=== PATIENT | female | born 1985 ===

== ENCOUNTER 2022-12-29 00:24 | Emergency (ER) | payer OTHER, SELFPAY ==
--- NOTE | ~2022-12-29 | CT_ITS ---
EXAMINATION: CT ABDOMEN AND PELVIS WITHOUT CONTRAST CLINICAL INFORMATION: Right upper quadrant pain COMPARISON: None available. TECHNIQUE: Multidetector volumetric imaging was performed from the superior aspect of the liver through the pubic symphysis. Sagittal and coronal reformatted images were obtained on the technologist's workstation. This CT examination was performed using dose optimization techniques as appropriate, variously including the following: *Automated exposure control *Adjustment of mA and/or kV according to patient size (this includes techniques or standardized protocols for targeted exams where dose is matched to indication/reason for exam; i.e. extremities or head) *Use of iterative reconstruction technique DLP: 868 mGy-cm FINDINGS: LUNG BASES: The visualized lung bases are unremarkable. LIVER, GALLBLADDER, AND BILIARY TREE: The liver is normal in size, shape, and attenuation. No focal hepatic lesion or biliary ductal dilatation is present. The gallbladder is unremarkable with no evidence of radiopaque gallstones, gallbladder wall thickening, or obvious pericholecystic inflammatory changes. PANCREAS: Unremarkable. SPLEEN: Unremarkable. ADRENAL GLANDS: Unremarkable. KIDNEYS AND URETERS: The kidneys are normal in size, shape, and attenuation. No hydronephrosis, hydroureter, or calculi seen. No perinephric stranding. BLADDER: Decompressed with no gross abnormality. GASTROINTESTINAL TRACT: The stomach is unremarkable. Normal caliber small bowel. No obstruction. No colonic wall thickening or acute inflammation. Mild colonic stool burden. Normal appendix. ABDOMINAL WALL: No significant hernia is appreciated. LYMPH NODES: Normal. VASCULAR: Unremarkable. PELVIC VISCERA: The uterus and adnexa are unremarkable. OSSEOUS STRUCTURES: Unremarkable. CT/CT abdomen pelvis wo IV con IMPRESSION: No acute findings in the abdomen or pelvis. No inflammatory changes. Normal appearance of the gallbladder. Fleischner guidelines were followed.
[2022-12-29 00:33] VITALS: BP 125/57; PULSE 84; RESP 18; TEMP 36.4; O2SAT 99; BMI 35.4
[2022-12-29 00:50] LABS: MANUAL DIFF FLAG NO
[2022-12-29 01:02] LABS: Basophils Absolute Auto 0.1 X10*3/uL (0.0-0.2); Basophils Percent Auto 0.4 % (0-2); Eosinophils Absolute Auto 0.6 X10*3/uL (0.0-0.4); Eosinophils Percent Auto 4.5 % (0-4); Hematocrit 44.7 % (37.0-47.0); Imm Gran Abs Auto 0.05 X10*3/uL (0.00-0.03); Imm Gran Pct Auto 0.4 % (0.0-0.4); Lymphocytes Absolute Auto 2.7 X10*3/uL (1.2-4.9); Lymphocytes Percent Auto 20.7 % (20-40); Mean Corpuscular HGB Conc 31.3 g/dl (31.0-35.0); Mean Corpuscular Hemoglobin 28.2 pg (27.0-33.0); Mean Corpuscular Volume 89.9 fL (80.0-98.0); Mean Platelet Volume 9.6 fL (9.4-12.3); Monocytes Absolute Auto 0.7 X10*3/uL (0.1-1.2); Monocytes Percent Auto 5.5 % (2-11); Neutrophils Absolute Auto 8.9 x10*3/uL (2.0-8.3); Neutrophils Percent Auto 68.5 % (45-73); Platelet Count 310 X10*3/uL (160-400); Red Blood Count 4.97 X10*6/uL (4.20-5.50); Red Cell Distribution Width 14.2 % (11.0-16.0)
[2022-12-29 01:17] LABS: Alanine Aminotransferase 13 U/L (0-31); Albumin Level 4.3 g/dL (3.5-5.0); Alkaline Phosphatase 105 U/L (39-117); Anion Gap 16 (12-20); Aspartate Amino Transferase 14 U/L (5-31); Bilirubin Total 0.5 mg/dL (0.0-1.0); Blood Urea Nitrogen 11 mg/dL (9-16); Calcium 9.7 mg/dL (8.4-10.2); Carbon Dioxide 17 mmol/L (22-29); Chloride 111 mmol/L (96-108); Creatinine Clr Calc Pharmacy 120.5; Estimated Glomerular Filt Rate > 60; Glucose Random 93 mg/dL (60-115); Potassium 4.2 mmol/L (3.3-5.1); Sodium 140 mmol/L (135-145); Total Protein 7.4 g/dL (6.5-8.0)
[2022-12-29 02:30] VITALS: BP 111/49; PULSE 76; RESP 16; TEMP 36.5; O2SAT 100
--- NOTE | 2022-12-29 02:30 | MHC.EDTECH ---
this pct assumed care of pt at 0225 ,vitals sign taken ,pt boy friend at bed side .
--- NOTE | 2022-12-29 03:45 | ED.ABDPAIN ---
HPI - Abdominal Pain General Chief Complaint: Nausea/Vomiting/Diarrhea Stated Complaint: Abd pain/vomiting/fever/chills Time Seen by Provider: 12/29/22 03:33 Source: patient and family (, Dario) Mode of arrival: ambulatory Limitations: no limitations History of Present Illness HPI narrative: 37-year-old female who presents emergency department for evaluation of abdominal pain x12 days. She states that the pain came on gradually approximately 6 days prior but has been constant. She points to her right upper quadrant when asked to localize the pain. She describes the pain is stabbing, burning, constant pain which is 10/10. The pain does radiate to her back. She states she has nausea and vomiting mainly at night. She states she throws up 3 to 4 times a day. She has not had any diarrhea and she did have a hard bowel movement yesterday. She has had a subjective fever and chills. She states that she feels short of breath secondary to her pain. This is her 1st episode of this type of pain. The patient is AG 4 P 3 with 1 miscarriage. Her last menstrual period was 3 weeks prior. Related Data Previous Rx's Medication Instructions Recorded morphine 15 mg immediate release 15 mg PO Q4-6H PRN pain #10 tabs 12/29/22 tablet ondansetron 4 mg disintegrating 4 mg PO Q6-8H PRN nausea and 12/29/22 tablet vomiting #14 tabs Allergies Allergy/AdvReac Type Severity Reaction Status Date / Time bee pollen Allergy Anaphylaxis Verified 12/29/22 00:30 mite-Dermatophagoides Allergy Nasal Verified 12/29/22 00:31 farinae, maya congestion [dust mite - [place]] onion Allergy Anaphylaxis Verified 12/29/22 00:30 pollen extracts Allergy Nasal Verified 12/29/22 00:31 congestion seafood Allergy Anaphylaxis Verified 12/29/22 00:30 berries Allergy Anaphylaxis Uncoded 12/29/22 00:30 Review of Systems Review of Systems Yes all other systems are reviewed and are negative [facility] Past Medical History [facility] Narrative: Past medical history: Asthma, lower disc disease, fibromyalgia. Past surgical history none: Social history: She is her is here in the emergency department with her. She smokes 7 cigarettes per day x7 years. She denies alcohol use. She denies drug use. Social History Social History Alcohol intake: never Smoked in Last 30 Days: Yes Use of substances other than those prescribed or required for medical reasons: Yes Substance Use Type: Marijuana Substance Use Frequency: Occasionally Advance Directives: No Advance Directives Information Provided: Yes Patient : No Physical Exam ED Vital Signs: Vital Signs - 24 hr 12/29/22 00:33 12/29/22 02:30 12/29/22 04:00 Temperature 97.6 F 97.7 F 97.7 F Pulse Rate 84 76 80 Respiratory Rate 18 16 16 Blood Pressure 125/57 L 111/49 L 115/45 L Pulse Oximetry 99 100 100 Oxygen Delivery Method Room Air Room Air Room Air 12/29/22 06:00 Temperature 98.0 F Pulse Rate 69 Respiratory Rate 16 Blood Pressure 105/52 L Pulse Oximetry 99 Oxygen Delivery Method Room Air BMI result Body Mass Index 35.4 Const Other: Awake, alert, female patient, she does appear to be in distress secondary to her pain, she answers all questions appropriately. She has an elevated BMI of 35.4 HENMT Head: Yes normal to inspection, Yes normocephalic and Yes atraumatic Ears: external ears normal General nose exam: Normal external nose present Face and sinus: Yes normal facial exam Mouth: Normal oral and palatal mucosa present Throat: Yes posterior oropharynx normal Eyes General: appearance normal, both eyes and all related structures Pupils: Equal, round and reactive pupils present Neck Neck: Yes normal visual inspection, Yes no lymphadenopathy, Yes trachea midline and Yes supple Chest Chest palpation & inspection: normal inspection of the chest and normal palpation of entire chest wall Resp Effort & Inspection: normal respiratory effort and able to speak in complete sentences Auscultation: clear to auscultation bilaterally Cardio Rate: regular rate Rhythm: regular rhythm Heart sounds: S1 normal heart sound present, S2 normal heart sound present and no murmurs GI Other: Patient's abdomen is obese, she has moderate to severe right upper quadrant tenderness with positive Larios sign, she has moderate epigastric tenderness, she has right-sided moderate CVA tenderness. She has normoactive bowel sounds, there is no rebound. General: Yes CVA tenderness on the right (Moderate) Back/Spine/Pelvis Back: CVA tenderness Skin General skin exam: no rashes or lesions noted Neuro Cranial nerves: Yes CN's II-XII intact bilaterally and Yes Equal, round and reactive pupils present Cognition (Neuro): normal cognition Motor exam (neuro): 5/5 motor strength present throughout Extrem General: Yes normal to inspection Psych Appearance: grossly normal Speech and movement: Normal speech and movement present Affect: normal affect Attitude: cooperative Medical Decision Making Medical Decision Making MDM Narrative: 37-year-old female who presents emergency department for evaluation of 12 days of right upper quadrant abdominal pain which radiates to her back associated with subjective fever, chills, nausea and vomiting. Vital signs were normal. Patient does have moderate right upper quadrant tenderness with positive Larios sign and epigastric tenderness. I did order a CBC, CMP, lipase, quantitative beta-hCG, influenza and COVID-19. Patient will be treated with morphine 4 mg IV, Zofran 4 mg IV and lactated Ringer's x1 L. will obtain a CT scan of the abdomen pelvis without IV contrast to evaluate her pain. 0634: My interpretation patient's laboratory evaluation is as follows: WBC elevated 13,000. Bicarb low 17. Quantitative beta-hCG negative. Lipase normal. The CT scan of the abdomen pelvis radiology interpretation revealed no acute findings to explain the patient's right upper quadrant pain. The patient is feeling better after the above treatment however after drinking some Sprite her pain did come back therefore she was ordered to get a 2nd dose of morphine. At this time I do not have a clear etiology for symptoms, the patient most likely has a viral syndrome. Patient was advised to take Tylenol ibuprofen for pain and for pain not relieved by these medications she was prescribed morphine 15 mg every 4 hours as needed. She is also given prescription for Zofran ODT 4 mg every 8 hours. She was given printed and verbal instructions discharged home. Differential Diagnosis Differential diagnosis includes but is not limited to acute cholecystitis, renal colic, ureteral stone, pancreatitis, viral syndrome, gastritis Lab Data 12/29/22 00:46 12/29/22 00:46 Labs: Lab Results 12/29/22 12/29/22 12/29/22 Range/Units 00:46 00:46 04:12 WBC 13.0 H (4.8-10.8) X10*3/uL RBC 4.97 (4.20-5.50) X10*6/uL Hgb 14.0 (12.0-16.0) g/dl Hct 44.7 (37.0-47.0) % MCV 89.9 (80.0-98.0) fL MCH 28.2 (27.0-33.0) pg MCHC 31.3 (31.0-35.0) g/dl RDW 14.2 (11.0-16.0) % Plt Count 310 (160-400) X10*3/uL MPV 9.6 (9.4-12.3) fL Immature Gran % (Auto) 0.4 (0.0-0.4) % Neut % (Auto) 68.5 (45-73) % Lymph % (Auto) 20.7 (20-40) % [place] % (Auto) 5.5 (2-11) % Eos % (Auto) 4.5 H (0-4) % Baso % (Auto) 0.4 (0-2) % Lymph # (Auto) 2.7 (1.2-4.9) X10*3/uL [place] # (Auto) 0.7 (0.1-1.2) X10*3/uL Eos # (Auto) 0.6 H (0.0-0.4) X10*3/uL Baso # (Auto) 0.1 (0.0-0.2) X10*3/uL Abs Immat Gran (auto) 0.05 H (0.00-0.03) X10*3/uL Absolute Neuts (auto) 8.9 H (2.0-8.3) x10*3/uL Absolute Nucleated RBC 0.000 (0.0-0.012) X10*3/uL Nucleated RBC % (auto) 0.0 (0.0-0.2) /100WBC Sodium 140 (135-145) mmol/L Potassium 4.2 (3.3-5.1) mmol/L Chloride 111 H (96-108) mmol/L Carbon Dioxide 17 L (22-29) mmol/L Anion Gap 16 (12-20) BUN 11 (9-16) mg/dL Creatinine 0.84 (0.5-1.4) mg/dL Estim Creat Clear Calc 120.5 Estimated GFR > 60 Random Glucose 93 (60-115) mg/dL Calcium 9.7 (8.4-10.2) mg/dL Total Bilirubin 0.5 (0.0-1.0) mg/dL AST 14 (5-31) U/L ALT 13 (0-31) U/L Alkaline Phosphatase 105 (39-117) U/L Total Protein 7.4 (6.5-8.0) g/dL Albumin 4.3 (3.5-5.0) g/dL Lipase 21 (8-78) U/L Beta HCG, Quant < 2 mIU/mL Urine Color Urine Appearance Urine pH (5.0-9.0) Ur Specific [place] (1.005-1.025) Urine Protein (Neg-Trace) mg/dL Urine Glucose (UA) (Negative) mg/dL Urine Ketones (Negative) mg/dL Urine Blood (Negative) Urine Nitrite (Negative) Ur Leukocyte Esterase (Negative) Urine RBC (0-2) /HPF Urine WBC (0-5) /HPF Ur Squamous Epith Cells (0-2) /HPF Urine Bacteria (None Seen) Hyaline Casts (0-2) /LPF COVID-19 (RUMA) (Negative) COVID-19 Clin Com Influenza Type A (CARYN) Negative (Negative) Influenza Type B (CARYN) Negative (Negative) Influenza A & B Note See Note 12/29/22 12/29/22 Range/Units 04:12 04:12 WBC (4.8-10.8) X10*3/uL RBC (4.20-5.50) X10*6/uL Hgb (12.0-16.0) g/dl Hct (37.0-47.0) % MCV (80.0-98.0) fL MCH (27.0-33.0) pg MCHC (31.0-35.0) g/dl RDW (11.0-16.0) % Plt Count (160-400) X10*3/uL MPV (9.4-12.3) fL Immature Gran % (Auto) (0.0-0.4) % Neut % (Auto) (45-73) % Lymph % (Auto) (20-40) % [place] % (Auto) (2-11) % Eos % (Auto) (0-4) % Baso % (Auto) (0-2) % Lymph # (Auto) (1.2-4.9) X10*3/uL [place] # (Auto) (0.1-1.2) X10*3/uL Eos # (Auto) (0.0-0.4) X10*3/uL Baso # (Auto) (0.0-0.2) X10*3/uL Abs Immat Gran (auto) (0.00-0.03) X10*3/uL Absolute Neuts (auto) (2.0-8.3) x10*3/uL Absolute Nucleated RBC (0.0-0.012) X10*3/uL Nucleated RBC % (auto) (0.0-0.2) /100WBC Sodium (135-145) mmol/L Potassium (3.3-5.1) mmol/L Chloride (96-108) mmol/L Carbon Dioxide (22-29) mmol/L Anion Gap (12-20) BUN (9-16) mg/dL Creatinine (0.5-1.4) mg/dL Estim Creat Clear Calc Estimated GFR Random Glucose (60-115) mg/dL Calcium (8.4-10.2) mg/dL Total Bilirubin (0.0-1.0) mg/dL AST (5-31) U/L ALT (0-31) U/L Alkaline Phosphatase (39-117) U/L Total Protein (6.5-8.0) g/dL Albumin (3.5-5.0) g/dL Lipase (8-78) U/L Beta HCG, Quant mIU/mL Urine Color Dark Yellow Urine Appearance Clear Urine pH 5.5 (5.0-9.0) Ur Specific [place] >= 1.030 H (1.005-1.025) Urine Protein Negative (Neg-Trace) mg/dL Urine Glucose (UA) Negative (Negative) mg/dL Urine Ketones Trace (Negative) mg/dL Urine Blood Small (1+) H (Negative) Urine Nitrite Negative (Negative) Ur Leukocyte Esterase Negative (Negative) Urine RBC 11-20 H (0-2) /HPF Urine WBC 0-5 (0-5) /HPF Ur Squamous Epith Cells 3-5 (0-2) /HPF Urine Bacteria None Seen (None Seen) Hyaline Casts 0-2 (0-2) /LPF COVID-19 (RUMA) Negative (Negative) COVID-19 Clin Com See Note Influenza Type A (CARYN) (Negative) Influenza Type B (CARYN) (Negative) Influenza A & B Note Medications Administered Discontinued Medications Generic Name Dose Route Start Last Admin Trade Name Sandipq PRN Reason Stop Dose Admin Lactated Ringer's 1,000 mls @ 999 mls/hr 12/29/22 03:45 12/29/22 06:32 Lr IV 12/29/22 04:45 Infused .Q1H1M KAMLA Infusion Morphine Sulfate 4 mg 12/29/22 03:44 12/29/22 04:37 Morphine Sulfate 4 Mg/Ml Cartridge IVPUSH 12/29/22 03:45 4 mg ONCE STA Administration Protocol Ondansetron HCl 4 mg 12/29/22 03:44 12/29/22 04:38 Ondansetron Hcl 4 Mg/2 Ml Vial IVPUSH 12/29/22 03:45 4 mg ONCE ONE Administration Discharge Plan Discharge Clinical Impression: Acute dehydration Abdominal pain Qualifiers: Abdominal location: right upper quadrant Qualified Code(s): R10.11 - Right upper quadrant pain Vomiting Qualifiers: Vomiting type: unspecified Nausea presence: with nausea Qualified Code(s): R11.2 - Nausea with vomiting, unspecified Patient Disposition: Home, Self-Care Instructions: Abdominal Pain (ED) Additional Instructions: Your blood work was unremarkable. The CT scan of your abdomen pelvis without IV contrast did not reveal a clear cause for your pain. At this time, I suspect that you have a viral infection. Take ibuprofen 200 mg pills, 2 pills every 6 hours as needed for pain. Take Tylenol (acetaminophen) 2 pills every 6 hours as needed for pain. For pain not relieved by ibuprofen or Tylenol take morphine 15 mg pills, 1 pill every 4 hours as needed for pain. This medication will make you sleepy, do not drive or work while taking this medication. Morphine is a narcotic medication and can be addicting. If you are concerned about addiction you can ask the pharmacist for less pills or do not get this prescription filled. Take Zofran ODT 4 mg pills, 1 pill dissolved in your mouth every 8 hours as needed for nausea and vomiting. Follow-up with your doctor in 2 days. Please return to the emergency department if your symptoms get worse or if you develop any symptoms that are concerning to you. Prescriptions: New morphine 15 mg tablet 15 mg PO Q4-6H PRN (Reason: pain) Qty: 10 0RF Rx Instructions: The patient may ask for partial fill; Partial Fill upon patient request. ondansetron 4 mg tablet,disintegrating 4 mg PO Q6-8H PRN (Reason: nausea and vomiting) Qty: 14 0RF
[2022-12-29 03:49] LABS: Lipase 21 U/L (8-78)
[2022-12-29 04:00] VITALS: BP 115/45; PULSE 80; RESP 16; TEMP 36.5; O2SAT 100
--- NOTE | 2022-12-29 04:00 | MHC.EDTECH ---
0400 rounding done ,vitals sign taken ,flu ,covid and urine sample collected and sent to lab .
[2022-12-29 04:02] LABS: HCG Quantitative < 2 mIU/mL
[2022-12-29 04:31] LABS: Appearance Urine Clear; Color Urine Dark Yellow; Glucose Urine UA Negative (Negative); Leukocyte Esterase Urine Negative (Negative); Nitrite Urine Negative (Negative); PH 5.5 (5.0-9.0); Specific Gravity - Urine >= 1.030 (1.005-1.025); UMIC TRIGGER UACC YES; Urine Blood Small (1+) (Negative); Urine Ketones Trace mg/dL (Negative); Urine Protein Negative (Neg-Trace)
[2022-12-29 04:37] LABS: Bacteria Urine None Seen (None Seen); Hyaline Casts Urine 0-2 /LPF (0-2); WBC Urine 0-5 /HPF (0-5)
[2022-12-29] MEDS: Morphine Sulfate 4 MG/ML CARTRIDGE IVPUSH ×2 (04:37→06:49)
[2022-12-29] MEDS: ondansetron HCL 4 MG/2 ML VIAL IVPUSH (04:38)
[2022-12-29] MEDS: Lactated Ringers 1,000 ML 999 ML IV (04:44)
[2022-12-29 04:46] LABS: IDNOW Serial# BCCEAD1C; Influenza A Negative (Negative); Influenza B2 Negative (Negative)
[2022-12-29 04:47] LABS: COVID-19 Test Negative (Negative); IDNOW Serial# 08D9AD1C
--- OUTSIDE RECORDS SUMMARY | 2022-12-29 04:48 | XMS_ITS | Continuity of Care Document ---
:1985 Author Organization [facility] Address [address] [place] [id number]- Care Team Providers Name Role Phone Fuad Moreira MD Primary Care Physician [place] [facility] [place] 04/22/[address] [id number] Allergies, Adverse Reactions, Alerts Substance Reaction Severity Status shellfish facial swelling Active Seafood facial swelling Active Medications Advair Diskus 250 mcg-50 mcg inhalation powder 1 puffs, Inhalation, 2 times a day, rinse mouth and throat after use, # 60 each, 3 Refills, Maintenance, 11/16/13 14:29:58, Powder, 1 puffs Inhalation 2 times a day,Instr:rinse mouth and throat after use Start Date: 11/16/13 Status: OrderedAdvair Diskus 500 mcg-50 mcg inhalation powder 1 puffs, Inhalation, 2 times a day, rinse mouth and throat after use, # 60 each, 4 Refills, Maintenance, 05/16/14 11:36:45, Powder, 1 puffs Inhalation 2 times a day,Instr:rinse mouth and throat after use Start Date: 05/16/14 Status: Orderedalbuterol 0.083% inhalation solution 3 mL = 2.5 mg, Inhalation, Every 6 hours, # 120 each, 0 Refills, Maintenance, Solution Start Date: 11/02/12 Status: Orderedalbuterol CFC free 90 mcg/inh inhalation aerosol 2 puffs, Inhalation, 4 times a day, PRN for wheezing, # 25 Gm, 0 Refills, Maintenance, Aerosol Start Date: 10/24/13 Status: OrderedClaritin 10 mg oral tablet 1 tablet = 10 mg, By Mouth, Daily, # 30 tablet, 2 Refills, Maintenance, 05/16/14 11:36:00, Tablet, 1tablet By Mouth Daily Start Date: 05/16/14 Status: OrderedDiflucan 150 mg oral tablet 1 tablet = 150 mg, By Mouth, Once, # 1 tablet, 0 Refills, Soft Stop, 12/02/18 9:41:18 EST, Tablet Start Date: 12/02/18 Status: Orderedgabapentin 100 mg oral capsule 3 capsule = 300 mg, By Mouth, 3 times a day, start with 1 capsule TID x 3 days the 2 capsules TID x 3 days then 3 capsules TID, # 270 capsule, 1 Refills, Maintenance, 09/20/14 10:36:10, 3 capsule By Mouth 3 times a day,Instr:start with 1 capsule TID x... Start Date: 09/20/14 Status: OrderedIbuprofen 400, mg, By Mouth, 4 times a day, Scheduled / PRN, 20, 0, 0, 08/14/07 16:47:48, as needed for headache, fever, or sore throat, Print ANYA Number, ADS OPPTHS, 65 Start Date: 08/14/07 Status: Orderedloratadine 10 mg oral tablet 1 tablet = 10 mg, By Mouth, Daily, # 30 tablet, 0 Refills, Maintenance, Tablet Start Date: 11/02/12 Status: OrderedPercocet-10/325 oral tablet 2 tablet, By Mouth, Every 6 hours, PRN Pain, # 24 tablet, 0 Refills, Maintenance, Tablet Start Date: 10/24/13 Status: OrderedSingulair 10 mg oral tablet 1 tablet = 10 mg, By Mouth, Daily in PM, # 30 tablet, 6 Refills, Maintenance, 05/16/14 11:35:00, 1 tablet By Mouth Daily in PM Start Date: 05/16/14 Status: Orderedtramadol 50 mg oral tablet 1 tablet = 50 mg, By Mouth, Daily at bedtime, 0 Refills, Maintenance Start Date: 11/02/12 Status: Orderedtrazodone 50 mg oral tablet 0.5 tablet = 25 mg, By Mouth, Daily at bedtime, # 15 tablet, 0 Refills, Maintenance, Tablet Start Date: 11/02/12 Status: Ordered Problem List Condition Effective Dates Status Health Status Informant Arthritis(Confirmed) Active Asthma(Confirmed) Active Fibromyalgia(Confirmed) Active Slipped disc(Confirmed) Active Social History Social History Type Response Smoking Status Never smoker; Tobacco user i n household: No entered on: 11/16/13 Sex
--- OUTSIDE RECORDS SUMMARY | 2022-12-29 04:48 | XMS_ITS | Continuity of Care Document ---
:1985 Author Organization [facility] Address [address] [place] [id number]- Care Team Providers Name Role Phone Lillie AGUILAR, Fuad Vega Primary Care Physician [place] [facility] [place]/23/[place] - 04/22/[address] [id number] Attending Physician: Admtr, Ar8 Allergies, Adverse Reactions, Alerts Substance Reaction Severity [...]
--- OUTSIDE RECORDS SUMMARY | 2022-12-29 04:48 | XMS_ITS | Continuity of Care Document ---
:1985 Author Organization [facility] Address [address] [place] [id number]- Care Team Providers Name Role Phone Lillie AGUILAR, Fuad Vega Primary Care Physician [facility] [place] Date(s): 06/18/20 - 07/21/[address] [address] [facility] Attending Physician: Morena Romo CNM Admitting Physician: Morena Romo CNM Allergies, Adverse Reactions, Alerts Substance Reaction Severity [...] Condition Effective Dates Status Health Status Informant Asthma(Confirmed) Active Social History Social History Type Response Smoking Status Never smoker; Tobacco user i n household: No entered on: 11/16/13 Sex
--- OUTSIDE RECORDS SUMMARY | 2022-12-29 04:48 | XMS_ITS | Continuity of Care Document ---
:1985 Author Organization [facility] Address [address] [place] [id number]- Care Team Providers Name Role Phone Lilile AGUILAR, Fuad Vega Primary Care Physician [place] [facility] [place] 06/04/[place] - 07/04/[address] [id number] Attending Physician: Admtr, Salvatore Allergies, Adverse Reactions, Alerts Substance Reaction Severity [...]
--- OUTSIDE RECORDS SUMMARY | 2022-12-29 04:48 | XMS_ITS ---
:1985 Author Care Team Providers Name Role Phone URBANO DU MD Primary Care Provider [phone] Allergies Code Code System Name Reaction Severity Status Onset NKDA ? Notes: seasonal allergies, cats and pe ts Medications Name Status Start Date Stop Date ? ? Acne Medication 10 % topical gel Active ? Not available KAMILA EXT TO FACE BID albuterol sulfate 2.5 mg/3 mL (0.083 %) solution for nebulizatio n Active ? Not available INHALE 3ML VIA NEBULIZER EVERY 6 HOURS NEEDED FOR WHEEZING ammonium lactate 12 % topical cream Active ? Not available APPLY TO BODY TWICE DAILY DIRECTED amoxicillin 500 mg capsule Completed ? 08/28 TAKE 1 CAPSULE BY MOUTH THREE TIMES DAILY FOR 7 DAYS azelaic acid 15 % topical gel Active ? No t available APPLY TOPICALLY TO FACE EVERY NIGHT AT BEDTIME azithromycin 250 mg tablet Completed ? 08/28 benzonatate 100 mg capsule Completed ? 08/28 TAKE 1 CAPSULE BY MOUTH TWICE DAILY NEEDED FOR COUGH betamethasone dipropionate 0.05 % lotion Active ? Not available BinaxNOW COVID-19 Ag Self Test kit Completed ? 08/28/2022 FOLLOW PACKAGE DIRECTIONS Breo Ellipta 100 mcg-25 mcg/dose powder for inhalation Completed ? 08/28/2022 INHALE 1 PUFF INTO THE LUNGS D cholecalciferol (vitamin D3) 1,250 mcg (50,000 unit) capsule Com pleted ? 08/28/2022 TK 1 C PO ONCE A WEEK clindamycin 1 % topical gel Active ? Not available APPLY TOPICALLY TO FACE TWICE DAILY Cough Syrup DM 10 mg-100 mg/5 mL Completed ? 11/13/2019 TK 5MLS PO TID PRF COUGH cyclobenzaprine 10 mg tablet Active ? Not available TAKE 1 TABLET BY MOUTH THREE TIMES DAILY NEEDED FOR MUSCLE S PASMS escitalopram 10 mg tablet Completed ? 2021 TAKE 1 AND 1/2 TABLETS BY MOUTH EVERY MORNING escitalopram 20 mg tablet Active ? Not av ailable TAKE 1 TABLET BY MOUTH EVERY MORNING Flovent HFA 110 mcg/actuation aerosol inhaler Active ? Not available INHALE 1 PUFF PO BID fluconazole 150 mg tablet Completed ? 2020 TK 1 T PO 1 TIME FOR 1 DOSE fluocinonide 0.05 % topical cream Active ? Not available fluoxetine 10 mg capsule Active ? Not cindy ilable TAKE 1 CAPSULE BY MOUTH DAILY fluticasone propionate 50 mcg/actuation nasal spray,suspension A ctive ? Not available INSTILL 1 SPRAY INTO EACH NOSTRILS ONCE DAILY hydrocortisone 2.5 % topical ointment Active ? Not available KAMILA AA BID hydroxyzine pamoate 25 mg capsule Completed ? 08/28/2022 TAKE 1 TO 2 CAPSULES BY MOUTH AT BEDTIME NEEDED FOR SLEEP ibuprofen 600 mg tablet Active ? Not avai lable TAKE 1 TABLET BY MOUTH THREE TIMES DAILY FOR UP TO 10 DAYS NEEDED FOR PAIN ibuprofen 800 mg tablet Completed ? 08/28/20 ketoconazole 2 % shampoo Active ? Not cindy ilable APPLY TOPICALLY TO THE SCALP 2 TIMES EV MELO WEEK. LEAVE ON 5 MINUTES THEN WASH OFF loratadine 10 mg tablet Active ? Not avai lable TAKE 1 TABLET BY MOUTH EVERY DAY NEEDED FOR ALLERGIES methocarbamol 750 mg tablet Completed ? 04/2021 TAKE 1 TABLET BY MOUTH THREE TIMES DAILY methylprednisolone 4 mg tablets in a dose pack Completed ? 03/17/2021 FOLLOW PACKAGE DIRECTIONS metronidazole 0.75 % topical cream Completed ? 08/28/2022 APPLY TOPICALLY TO FACE EVERY MORNING metronidazole 500 mg tablet Completed ? 01/09 TAKE 1 TABLET BY MOUTH EVERY 12 HOURS FOR 7 DAYS montelukast 10 mg tablet Active ? Not cindy ilable TAKE 1 TABLET BY MOUTH EVERY NIGHT AT BEDTIME mgejcgrj-sdcorcriz-lbwluelhd 3.5 mg-10,000 unit/mL-1 % ear d rops,susp Completed ? 08/28/2022 INSTILL 4 DROPS IN LEFT EAR EVERY 6 HOURS nicotine 21 mg/24 hr daily transdermal patch Completed ? 08/28/[address]22 PLACE 1 PATCH ONTO THE SKIN ONCE DAILY omeprazole 20 mg capsule,delayed release Completed ? 08/28/2022 TK 1 C PO D pantoprazole 40 mg tablet,delayed release Active ? Not available TAKE 1 TABLET BY MOUTH EVERY MORNING BEFORE BREAKFAST Paxlovid 300 mg (150 mg x 2)-100 mg tablets in a dose pack (EUA) Completed ? 08/28/2022 TAKE 3 TABLETS BY MOUTH EVERY MORNING AND EVENING FOR 5 DAYS prazosin 1 mg capsule Completed ? 08/28/2022 TAKE 1 CAPSULE BY MOUTH AT BEDTIME prazosin 2 mg capsule Active ? Not availa ble TAKE 1 CAPSULE BY MOUTH AT BEDTIME prednisone 20 mg tablet Completed ? 08/28/20 22 TAKE 2 TABLETS BY MOUTH EVERY DAY FOR 5 DAYS pregabalin 100 mg capsule Active ? Not av ailable TAKE 1 CAPSULE BY MOUTH TWICE DAILY pregabalin 50 mg capsule Completed ? 022 TAKE 1 CAPSULE BY MOUTH THREE TIMES DAILY ProAir HFA 90 mcg/actuation aerosol inhaler Active ? Not available INHALE 2 PUFFS BY MOUTH EVERY 6 HOURS A S NEEDED FOR SHORTNESS OF BREATH OR WHEEZING sertraline 25 mg tablet Active ? Not avai lable TK 1 T PO QD sumatriptan 50 mg tablet Active ? Not cindy ilable TAKE 1 TABLET BY MOUTH EVERY DAY NEEDED FOR MIGRAINE Symbicort 160 mcg-4.5 mcg/actuation HFA aerosol inhaler Complete d ? 08/28/2022 INHALE 2 PUFFS INTO THE LUNGS TWICE DAILY trazodone 100 mg tablet Active ? Not avai lable TAKE 1 TO 2 TABLETS BY MOUTH AT BEDTIME NEEDED FOR SLEEP trazodone 50 mg tablet Completed ? 2 TAKE UP TO 2 TABLETS BY MOUTH AT BEDTIME NEEDED FOR SLEEP triamcinolone acetonide 0.025 % topical cream Active ? Not available varenicline 1 mg tablet Completed ? 08/28/20 22 TAKE 1 TABLET BY MOUTH TWICE DAILY Problems Name Status Onset Date Source ? Lumbosacral Spondylosis without Myelopathy Active ? ? Degeneration of Lumbar Intervertebral Disc Active ? ? Lumbosacral Radiculopathy Active ? ? Procedures Date Name Performed by ? ? Tubal Ligation Information not avai lable 11/13/2019 MRI, Lumbar Spine, W/o Contrast [facility] [address] [place] [address] ([address]) 03/17/2021 MRI, Lumbar Spine, W/o Contrast [facility] [address] [place] [address] (Work Place) Notes: PPTL Results Lab Results None recorded. Past Encounters Encounter Date Diagnosis Provider 08/28/2022 Degeneration of Lumbar Intervertebral Th bhumikau MD [place]: [address]; Lumbosacral Radiculopathy; [address], [place]umbos[place] [address], Ph. Myelopathy 01/26/2022 Degeneration of Lumbar Intervertebral Th bhumikau MD [place]: [address]; Lumbosacral Radiculopathy; [address], [place]umbosacral [place] [address], Ph. Myelopathy 08/11/2021 Degeneration of Lumbar Intervertebral Th bhumikau MD [place]: [address]; Lumbosacral Radiculopathy; [address], [place]umbosacral [place] [address], Ph. Myelopathy 07/03/2021 Degeneration of Lumbar Intervertebral Th bhumikau MD [place]: [address]; Lumbosacral Radiculopathy; [address], [place]umbosacral [place] [address], Ph. Myelopathy Social History Tobacco Smoking Status Current Every Day Smoker Notes: kota pretty per day Vaccine List Notes: covid vaccine - 2 doses pfizer Plan of Care Reminders Provider Appointments None recorded. ? ? Lab None recorded. ? ? Referral None recorded. ? ? Procedures None recorded. ? ? Surgeries None recorded. ? ? Imaging None recorded. ? ? Vitals 08/28/2022 10:00AM RETURN Height Weight BMI Blood Pressure 5 ft 10 in 250 lbs 35.9 kg/m2 126/56 mm[Hg] 08/11/2021 09:30AM RETURN Height Weight BMI 5 ft 10 in 221 lbs 31.7 kg/m2 07/03/2021 11:30AM RETURN Blood Pressure 120/79 mm[Hg] 05/07/2021 10:00AM PROCEDURE Blood Pressure 153/79 mm[Hg] 04/10/2021 09:00AM RETURN Blood Pressure 109/61 mm[Hg] 03/17/2021 09:00AM RETURN Blood Pressure 125/58 mm[Hg] 11/13/2019 09:30AM NEW PATIENT VISIT Height Weight BMI Blood Pressure 5 ft 10 in 221 lbs 31.7 kg/m2 115/59 mm[Hg]
--- OUTSIDE RECORDS SUMMARY | 2022-12-29 04:48 | XMS_ITS | Continuity of Care Document ---
:1985 Author Organization [facility] Address [address] [place] [id number]- Care Team Providers Name Role Phone Fuad Moreira MD Primary Care Physician Encounter [facility] [place] Date(s): 01/05/22 - 04/22/[address] [id number] Attending Physician: Not on Staff, Attending MD Allergies, Adverse Reactions, Alerts Substance Reaction Severity [...]
--- OUTSIDE RECORDS SUMMARY | 2022-12-29 04:48 | XMS_ITS | Continuity of Care Document ---
:1985 Author Organization [facility] Address [address] [place] [address]- Care Team Providers Name Role Phone Lillie AGUILAR, Fuad Vega Primary Care Physician [place] [facility] [place] - 07/21/[address] [address] [facility] Attending Physician: Admtr, Ar8 Allergies, Adverse Reactions, [...]
--- OUTSIDE RECORDS SUMMARY | 2022-12-29 04:48 | XMS_ITS | Continuity of Care Document ---
:1985 Author Organization [facility] Address [address] [place] [address]- Care Team Providers Name Role Phone Trae AGUILAR, Paolo Rudd Primary Care Physician [place] [facility] [place](s): 06/12/22 - 07/12/[address] [address] Attending Physician: Admtr, Ar8 Allergies, Adverse [...] By Mouth Daily Start Date: 05/16/14 Status: Orderedgabapentin 100 mg oral capsule 3 [...] Daily in PM Start Date: 05/16/14 Status: Orderedtrazodone 50 mg oral tablet 0.5 tablet = 25 mg, By Mouth, Daily at bedtime, # 15 tablet, 0 Refills, Maintenance, Tablet Start Date: 11/02/12 Status: Ordered Problem List Condition Confirmation Course Effective Dates Status Health Stat us Informant Arthritis Confirmed Active Asthma Confirmed Active Fibromyalgia Confirmed Active Obese class II Confirmed Active Slipped disc Confirmed Active Social History Social History Type Response Smoking Status 5-9 cigarettes (between 1/4 to 1/2 pack)/day in last 30 days entered on: 06/12/22 Sex Patient Care team information PersonnelName: Trae AGUILAR, Paolo Rudd Address: Address: [address] [place] [address] [place] [address]- [place]
--- OUTSIDE RECORDS SUMMARY | 2022-12-29 04:48 | XMS_ITS | Continuity of Care Document ---
:1985 Author Organization [facility] Address [address] [place] [address]- Care Team Providers Name Role Phone Lillie AGUILAR, Fuad Vega Primary Care Physician [place] [facility] [place](s[place] 06/05/21 - 07/05/[address] [address]- Allergies, Adverse Reactions, Alerts Substance Reaction Severity [...]
--- OUTSIDE RECORDS SUMMARY | 2022-12-29 04:48 | XMS_ITS | Continuity of Care Document ---
:1985 Author Organization [facility] Address [address] [place] [address]- Care Team Providers Name Role Phone Fuad Moreira MD Primary Care Physician Encounter [facility] [place] Date(s): 06/05/21 - 08/31/[address] [address] Attending Physician: Blanquita Rodas CNM Admitting Physician: Blanquita Rodas CNM Referring Physician: Blanquita Rodas CNM Allergies, Adverse Reactions, Alerts Substance Reaction [...]
[2022-12-29 06:00] VITALS: BP 105/52; PULSE 69; RESP 16; TEMP 36.7; O2SAT 99
[2022-12-29 06:49] VITALS: RESP 18
== END 2022-12-29 07:01 | disposition home or self-care (01) ==
PROVIDERS: Emergency Provider Emergency Medicine Emergency Medical Services; PCP Internal Medicine
DX: E86.0 Dehydration (principal); R10.9 Unspecified abdominal pain; R50.9 Fever, unspecified; Z20.822 Contact with and (suspected) exposure to COVID-19; Z20.828 Contact with and (suspected) exposure to other viral communicable diseases; Z79.899 Other long term (current) drug therapy
CPT/HCPCS: 36415; 74176; 80053; 81001; 83690; 84702; 85025; 87502; 87635; 96361; 96374; 96375; 96376; 99284; J2270; J2405

== ENCOUNTER 2023-01-02 16:13 | Inpatient (IN) | payer OTHER, SELFPAY ==
--- NOTE | ~2023-01-02 | MR_ITS ---
EXAMINATION: MR ABDOMEN WITHOUT CONTRAST CLINICAL INFORMATION: Right upper quadrant pain. Elevated transaminases. COMPARISON: Ultrasound and CT imaging exams of the abdomen from 01/02/2023. TECHNIQUE: MR imaging of the abdomen performed using standard sequences on a high-field magnet without intravenous contrast. The examination includes heavily T2-weighted MRCP sequences. FINDINGS: LUNG BASES: Normal. No pulmonary consolidation or pleural effusion. LIVER: Mild hepatomegaly. Liver has normal contour. No focal lesion or intrahepatic ductal dilatation. The parenchyma exhibits mild decreased signal intensity on [id number] compared to in-phase T1-weighted images which suggests presence of mild steatosis. GALLBLADDER AND BILIARY TREE: Gallbladder is physiologically distended and has normal wall thickness. A few small gallstones are noted. No gallbladder wall edema or pericholecystic fluid. Common bile duct measures 0.4 cm diameter. No common duct stricture or choledocholithiasis. PANCREAS: No edema, pancreatic ductal dilatation or mass. SPLEEN: Normal. ADRENAL GLANDS: Normal. KIDNEYS: Kidneys are normal in size. No hydronephrosis or perinephric edema. 1.5 cm simple cyst of the right kidney. No renal imaging follow-up is recommended for simple cyst. BOWEL AND PERITONEUM: Stomach is unremarkable. No dilated loops of bowel. No bowel wall thickening or mesenteric fat stranding. No ascites. VASCULATURE: Unremarkable. LYMPH NODES: No pathologic sized lymph nodes in the abdomen. SKELETAL: Unremarkable. MR/MR MRCP IMPRESSION: * Cholelithiasis without evidence of cholecystitis. * The common bile duct is normal (0.4 cm diameter). No evidence of choledocholithiasis. * Findings are suggestive of mild hepatic steatosis.
--- NOTE | ~2023-01-02 | US_ITS ---
EXAMINATION: US ABDOMEN LIMITED CLINICAL INFORMATION: Elevated LFTs. COMPARISON: CT abdomen pelvis 12/29/2022 TECHNIQUE: Real-time imaging of the right upper quadrant abdominal viscera. FINDINGS: PANCREAS: The pancreas appears unremarkable, without masses or ductal dilatation, with the exception of the tail which is obscured by bowel gas. LIVER: The liver is enlarged measuring at least 19 cm in greatest length with increased echogenicity suggesting hepatic steatosis. On the recent CT scan the liver measured 22 cm in greatest length. The liver contour is normal. No focal hepatic lesion. There is no intrahepatic biliary duct dilatation seen. GALLBLADDER: Gallstones are present along with echogenic bile. Larios's sign is positive. No pericholecystic fluid collections are seen. COMMON BILE DUCT: Normal in caliber measuring 0.5 cm in diameter. RIGHT KIDNEY: A 1.6 cm benign Bosniak class I cyst is present which needs no additional imaging or follow-up. No hydronephrosis. No renal calculi or focal solid parenchymal lesions. The kidney measures 10.1 cm in maximum dimension. FREE FLUID: None. US/US abdomen limited IMPRESSION: 1. Enlarged fatty liver. 2. Cholelithiasis with positive Larios's sign.
--- NOTE | ~2023-01-02 | CT_ITS ---
EXAMINATION: CT ABDOMEN AND PELVIS WITHOUT CONTRAST CLINICAL INFORMATION: Right upper quadrant pain COMPARISON: Ultrasound abdomen 01/02/2023, CT abdomen pelvis 12/29/2022 TECHNIQUE: Multidetector volumetric imaging was performed from the superior aspect of the liver through the pubic symphysis. Sagittal and coronal reformatted images were obtained on the technologist's workstation. This CT examination was performed using dose optimization techniques as appropriate, variously including the following: *Automated exposure control *Adjustment of mA and/or kV according to patient size (this includes techniques or standardized protocols for targeted exams where dose is matched to indication/reason for exam; i.e. extremities or head) *Use of iterative reconstruction technique DLP: 818 mGy-cm FINDINGS: LUNG BASES: The visualized lung bases are unremarkable. LIVER, GALLBLADDER, AND BILIARY TREE: The liver is enlarged measuring 21.6 cm in cephalocaudad dimension. Attenuation is normal. No bile duct dilatation or hepatic masses are seen. The patient's gallstones are isoattenuating with the bile and are not seen on CT. There is no evidence of radiopaque gallstones, gallbladder wall thickening, or obvious pericholecystic inflammatory changes. PANCREAS: Unremarkable. SPLEEN: Spleen is enlarged measuring 13.5 cm in greatest transverse dimension ADRENAL GLANDS: Unremarkable. KIDNEYS AND URETERS: The kidneys are normal in size, shape, and attenuation. No hydronephrosis, hydroureter, or calculi seen. No perinephric stranding. BLADDER: Unremarkable. GASTROINTESTINAL TRACT: The small and large bowel are unremarkable. The appendix is unremarkable. ABDOMINAL WALL: No significant hernia is appreciated. LYMPH NODES: Normal. VASCULAR: Unremarkable. PELVIC VISCERA: Unremarkable. Fallopian tube occlusion devices appear to be present. OSSEOUS STRUCTURES: Unremarkable. Some mild degenerative changes are seen. CT/CT abdomen pelvis wo IV con IMPRESSION: 1. A cause for the patient's abdominal pain has not been found. The patient has gallstones are not seen on CT scan. 2. Incidental note made of hepatosplenomegaly. Fleischner guidelines were followed.
[2023-01-02 16:17] VITALS: BP 140/83; PULSE 68; RESP 18; TEMP 36.3; O2SAT 99; BMI 35.4
[2023-01-02 17:09] LABS: MANUAL DIFF FLAG NO
[2023-01-02 17:14] LABS: Appearance Urine Cloudy; Color Urine Dark Yellow; Glucose Urine UA Negative (Negative); Leukocyte Esterase Urine Moderate (2+) (Negative); Nitrite Urine Positive (Negative); PH 5.5 (5.0-9.0); Specific Gravity - Urine >= 1.030 (1.005-1.025); UMIC TRIGGER UACC YES; Urine Blood Moderate (2+) (Negative); Urine Ketones Trace mg/dL (Negative); Urine Protein Trace mg/dL (Neg-Trace)
[2023-01-02 17:21] LABS: Basophils Percent Auto 0.4 % (0-2); Eosinophils Absolute Auto 0.2 X10*3/uL (0.0-0.4); Eosinophils Percent Auto 3.2 % (0-4); Hematocrit 40.3 % (37.0-47.0); Hemoglobin 13.6 g/dl (12.0-16.0); Imm Gran Abs Auto 0.05 X10*3/uL (0.00-0.03); Imm Gran Pct Auto 0.7 % (0.0-0.4); Lymphocytes Absolute Auto 1.3 X10*3/uL (1.2-4.9); Lymphocytes Percent Auto 19.5 % (20-40); Mean Corpuscular HGB Conc 33.7 g/dl (31.0-35.0); Mean Corpuscular Hemoglobin 29.1 pg (27.0-33.0); Mean Corpuscular Volume 86.1 fL (80.0-98.0); Mean Platelet Volume 9.2 fL (9.4-12.3); Monocytes Absolute Auto 0.5 X10*3/uL (0.1-1.2); Monocytes Percent Auto 6.7 % (2-11); Neutrophils Absolute Auto 4.7 x10*3/uL (2.0-8.3); Neutrophils Percent Auto 69.5 % (45-73); Platelet Count 387 X10*3/uL (160-400); Red Blood Count 4.68 X10*6/uL (4.20-5.50); Red Cell Distribution Width 13.7 % (11.0-16.0); White Blood Count 6.8 X10*3/uL (4.8-10.8)
[2023-01-02 17:32] LABS: Bacteria Urine 4+ (None Seen); RBC Urine >20 /HPF (0-2); UACC Culture Trigger YES; WBC Urine 21-50 /HPF (0-5)
[2023-01-02 17:41] LABS: Alanine Aminotransferase 347 U/L (0-31); Albumin Level 4.2 g/dL (3.5-5.0); Alkaline Phosphatase 179 U/L (39-117); Anion Gap 14 (12-20); Aspartate Amino Transferase 352 U/L (5-31); Bilirubin Total 1.7 mg/dL (0.0-1.0); Blood Urea Nitrogen 9 mg/dL (9-16); Calcium 9.4 mg/dL (8.4-10.2); Carbon Dioxide 21 mmol/L (22-29); Chloride 112 mmol/L (96-108); Creatinine Clr Calc Pharmacy 123.4; Estimated Glomerular Filt Rate > 60; Glucose Random 90 mg/dL (60-115); Potassium 3.9 mmol/L (3.3-5.1); Sodium 143 mmol/L (135-145)
[2023-01-02 19:30] LABS: Lipase 18 U/L (8-78); Magnesium 2.4 mg/dL (1.6-2.6)
[2023-01-02 19:38] LABS: HCG Quantitative < 2 mIU/mL
--- NOTE | 2023-01-02 20:44 | ED_ITS ---
HPI - Abdominal Pain General Chief Complaint: Abdominal Pain Stated Complaint: abd pain Time Seen by Provider: 01/02/23 20:38 Source: patient Mode of arrival: ambulatory Limitations: no limitations History of Present Illness HPI narrative: This is a 37-year-old female history of obesity, asthma, fibromyalgia presenting to the emergency department for evaluation of right upper quadrant pain times a few weeks worsening over the past few days. Patient also reports associated nausea and vomiting. Patient tells me each time she tries to eat she vomits. Patient tells meeting precipitates the pain. Pain is sharp in nature, localized to the right upper quadrant at times radiates to her flank. Reports pain is s evere in nature. Patient still has her gallbladder. Reports subjective fevers and chills however has not taken her temperature. Patient denies chest pain, shortness of breath, headache, vision changes, weakness, dizziness. Related Data Previous Rx's Medication Instructions Recorded morphine 15 mg immediate release 15 mg PO Q4-6H PRN pain #10 tabs 12/29/22 tablet ondansetron 4 mg disintegrating 4 mg PO Q6-8H PRN nausea and 12/29/22 tablet vomiting #14 tabs Allergies Allergy/AdvReac Type Severity Reaction Status Date / Time bee pollen Allergy Anaphylaxis Verified 12/29/22 00:30 mite-Dermatophagoides Allergy Nasal Verified 12/29/22 00:31 farinae, maya congestion [dust mite - [place]] onion Allergy Anaphylaxis Verified 12/29/22 00:30 pollen extracts Allergy Nasal Verified 12/29/22 00:31 congestion seafood Allergy Anaphylaxis Verified 12/29/22 00:30 berries Allergy Anaphylaxis Uncoded 12/29/22 00:30 Review of Systems Review of Systems Constitutional : No Weight loss, No Fever, No Chills, No Fatigue, No Malaise ENT/Mouth : No sore throat, No Rhinorrhea Eyes: No Eye Pain, No Swelling, No Redness Cardiovascular : No Chest Pain, No SOB, No Dyspnea on Exertion, No Orthopnea, No Edema, No Palpitations Respiratory : No Cough, No Sputum, No Wheezing Gastrointestinal : + Nausea, + Vomiting, No Diarrhea, No Constipation, + abdominal Pain, No Hematochezia, No Melena Genitourinary : No Dysuria, No Urinary Frequency, No Hematuria, Musculoskeletal : No joint pain, No Myalgias, No Joint Swelling Skin : No Skin Lesions, No rash Neuro : No Weakness, No Numbness, No Dizziness, No Headache Psych : No Anxiety/Panic, No Depression All other systems reviewed and are negative Yes all other systems are reviewed and are negative [facility] Past Medical History Attestation statement: The following information was validated with the patient. Source: old records reviewed and nursing notes reviewed Social History Social History Alcohol intake: never Substance Use Type: Marijuana Advance Directives: No Advance Directives Information Provided: No Physical Exam ED Vital Signs: Vital Signs - 24 hr 01/02/23 16:17 Temperature 97.4 F Pulse Rate 68 Respiratory Rate 18 Blood Pressure 140/83 H Pulse Oximetry 99 Oxygen Delivery Method Room Air BMI result Body Mass Index 35.4 vss Appearance: Alert.? Oriented X3.? No acute distress.? Head: Normocephalic, atraumatic, no step-offs or deformities Eyes: Pupils equal, round and reactive to light.? ENT: Pharynx normal.? Neck: Normal inspection.? Neck supple.? CVS: Normal heart rate and rhythm.? Pulses normal.? Respiratory: No respiratory distress.? Breath sounds normal.? Abdomen: Soft and + right upper quadrant tenderness with positive Larios sign on exam. Skin: Skin warm and dry.? Normal skin color.? Normal skin turgor.? Extremities: No lower extremity edema.? No calf ttp. 5/5 strength to bilateral upper and lower extremities Back: No midline tenderness, no C-spine tenderness, full range of motion, no CVA tenderness bilaterally Neuro: Oriented X 3.? No motor deficit.? No sensory deficit. CN 2-12 intact Course Reevaluation(s) Reevaluation #1: CBC unremarkable. Chemistry with elevated bilirubin 1.7, AST 352, ALT 347, alk phos 179, these values are deviating significantly from her baseline. I suspect acute cholecystitis with possible obstructing stone. Unlikely cholangitis. Reached out to who will evaluate patient for acute cholecystitis. He also recommends reaching out to GI. Patient is also noted to have a UTI, blood cultures, lactic acid in ceftriaxone ordered. US w/ cholelithiasis w/ + murphys sign Time: 20:51 Reevaluation #2: Dr. Pettit evaluated patient agrees with acute cholecystitis. Would like this case discussed with GI to see if patient will require in the air CP. He will admit to his service. Time: 20:56 Reevaluation #3: Dr. Thomas recommends admitting giving atbx and trending LFTS. If LFTS improve no need for ERCP but if they are unchaged or worse ERCP is warneted. MRCP w/ MRI may be more helpful per GI rather than ERCP. Time: 21:19 Additional Reevaluation(s): [address] Patient refusing contrast. 2204 CT of the abdomen and pelvis unable to identify a cause for patient's abdominal pain. Gallstones not visualized. Incidental note of hepatosplenomegaly. Patient admitted to surgical team. Hemodynamically stable. Medical Decision Making Medical Decision Making [facility] Narrative: 2044 37-year-old female presents with right upper quadrant pain at times radiating to her right flank region with associated nausea and vomiting. Pain precipitated by eating. Going on for few weeks , worsening over the past few days. On exam patient does have right upper quadrant tenderness on exam with positive Larios sign me. Patient appears uncomfortable. No signs of peritonitis or acute abdomen History and physical exam concerning for acute cholecystitis w/ possible cholelithiasis, unlikely cholangitis, acute abdomen, appendicitis, pancreatitis diverticulitis. Plan at this time labs, imaging. Will recheck to surgery Differential Diagnosis Differential Diagnoses: The differential diagnosis associated with the presentation includes History and physical exam concerning for acute cholecystitis w/ possible cholelithiasis, unlikely cholangitis, acute abdomen, appendicitis, pancreatitis diverticulitis. Admission/Observation Consideration of admission/observation: Escalation of care including admission/observation considered Likely Consult Healthcare Provider Management of the patient was discussed with: Instructional Paraprofessional (Dr. Santiago & William ) Lab Data [facility] Lab Attestation statement: I reviewed the patient's lab results. 01/02/23 17:01 01/02/23 17:01 Labs: Lab Results 01/02/23 01/02/23 01/02/23 Range/Units 17:01 17:01 17:05 WBC 6.8 (4.8-10.8) X10*3/uL RBC 4.68 (4.20-5.50) X10*6/uL Hgb 13.6 (12.0-16.0) g/dl Hct 40.3 (37.0-47.0) % MCV 86.1 (80.0-98.0) fL MCH 29.1 (27.0-33.0) pg MCHC 33.7 (31.0-35.0) g/dl RDW 13.7 (11.0-16.0) % Plt Count 387 (160-400) X10*3/uL MPV 9.2 L (9.4-12.3) fL Immature Gran % (Auto) 0.7 H (0.0-0.4) % Neut % (Auto) 69.5 (45-73) % Lymph % (Auto) 19.5 L (20-40) % Fleming % (Auto) 6.7 (2-11) % Eos % (Auto) 3.2 (0-4) % Baso % (Auto) 0.4 (0-2) % Lymph # (Auto) 1.3 (1.2-4.9) X10*3/uL Fleming # (Auto) 0.5 (0.1-1.2) X10*3/uL Eos # (Auto) 0.2 (0.0-0.4) X10*3/uL Baso # (Auto) 0.0 (0.0-0.2) X10*3/uL Abs Immat Gran (auto) 0.05 H (0.00-0.03) X10*3/uL Absolute Neuts (auto) 4.7 (2.0-8.3) x10*3/uL Absolute Nucleated RBC 0.000 (0.0-0.012) X10*3/uL Nucleated RBC % (auto) 0.0 (0.0-0.2) /100WBC Sodium 143 (135-145) mmol/L Potassium 3.9 (3.3-5.1) mmol/L Chloride 112 H (96-108) mmol/L Carbon Dioxide 21 L (22-29) mmol/L Anion Gap 14 (12-20) BUN 9 (9-16) mg/dL Creatinine 0.82 (0.5-1.4) mg/dL Estim Creat Clear Calc 123.4 Estimated GFR > 60 Random Glucose 90 (60-115) mg/dL Lactic Acid (0.5-2.0) mmol/L Calcium 9.4 (8.4-10.2) mg/dL Magnesium 2.4 (1.6-2.6) mg/dL Total Bilirubin 1.7 H (0.0-1.0) mg/dL AST 352 H (5-31) U/L ALT 347 H (0-31) U/L Alkaline Phosphatase 179 H (39-117) U/L Total Protein 7.0 (6.5-8.0) g/dL Albumin 4.2 (3.5-5.0) g/dL Lipase 18 (8-78) U/L Beta HCG, Quant < 2 mIU/mL Urine Color Dark Yellow Urine Appearance Cloudy Urine pH 5.5 (5.0-9.0) Ur Specific [place] >= 1.030 H (1.005-1.025) Urine Protein Trace (Neg-Trace) mg/dL Urine Glucose (UA) Negative (Negative) mg/dL Urine Ketones Trace (Negative) mg/dL Urine Blood Moderate (2+) H (Negative) Urine Nitrite Positive H (Negative) Ur Leukocyte Esterase Moderate (2+) H (Negative) Urine RBC >20 H (0-2) /HPF Urine WBC 21-50 H (0-5) /HPF Ur Squamous Epith Cells 11-20 (0-2) /HPF Urine Bacteria 4+ (None Seen) Hyaline Casts 11-20 (0-2) /LPF 01/02/23 Range/Units 20:57 WBC (4.8-10.8) X10*3/uL RBC (4.20-5.50) X10*6/uL Hgb (12.0-16.0) g/dl Hct (37.0-47.0) % MCV (80.0-98.0) fL MCH (27.0-33.0) pg MCHC (31.0-35.0) g/dl RDW (11.0-16.0) % Plt Count (160-400) X10*3/uL MPV (9.4-12.3) fL Immature Gran % (Auto) (0.0-0.4) % Neut % (Auto) (45-73) % Lymph % (Auto) (20-40) % Fleming % (Auto) (2-11) % Eos % (Auto) (0-4) % Baso % (Auto) (0-2) % Lymph # (Auto) (1.2-4.9) X10*3/uL Fleming # (Auto) (0.1-1.2) X10*3/uL Eos # (Auto) (0.0-0.4) X10*3/uL Baso # (Auto) (0.0-0.2) X10*3/uL Abs Immat Gran (auto) (0.00-0.03) X10*3/uL Absolute Neuts (auto) (2.0-8.3) x10*3/uL Absolute Nucleated RBC (0.0-0.012) X10*3/uL Nucleated RBC % (auto) (0.0-0.2) /100WBC Sodium (135-145) mmol/L Potassium (3.3-5.1) mmol/L Chloride (96-108) mmol/L Carbon Dioxide (22-29) mmol/L Anion Gap (12-20) BUN (9-16) mg/dL Creatinine (0.5-1.4) mg/dL Estim Creat Clear Calc Estimated GFR Random Glucose (60-115) mg/dL Lactic Acid 0.7 (0.5-2.0) mmol/L Calcium (8.4-10.2) mg/dL Magnesium (1.6-2.6) mg/dL Total Bilirubin (0.0-1.0) mg/dL AST (5-31) U/L ALT (0-31) U/L Alkaline Phosphatase (39-117) U/L Total Protein (6.5-8.0) g/dL Albumin (3.5-5.0) g/dL Lipase (8-78) U/L Beta HCG, Quant mIU/mL Urine Color Urine Appearance Urine pH (5.0-9.0) Ur Specific [place] (1.005-1.025) Urine Protein (Neg-Trace) mg/dL Urine Glucose (UA) (Negative) mg/dL Urine Ketones (Negative) mg/dL Urine Blood (Negative) Urine Nitrite (Negative) Ur Leukocyte Esterase (Negative) Urine RBC (0-2) /HPF Urine WBC (0-5) /HPF Ur Squamous Epith Cells (0-2) /HPF Urine Bacteria (None Seen) Hyaline Casts (0-2) /LPF Independent Interpretation I performed an independent interpretation of an: Ultrasound (History and physi betty exam concerning for acute cholecystitis w/ possible cholelithiasis, unlikely cholangitis, acute abdomen, appendicitis, pancreatitis diverticulitis.) and CT Scan (CT/CT abdomen pelvis wo IV con IMPRESSION: 1. A cause for the patient's abdominal pain has not been found. The patient has gallstones are not seen on CT scan. 2. Incidental note made of hepatosplenomegaly. Fleischner guidelines we re followed.) Radiology Impression Discussion of test interpretation with radiology: I have reviewed the radiologist's reading. Core Measures Measure exclusions: not indicated Medications Administered Discontinued Medications Generic Name Dose Route Start Last Admin Trade Name Freq PRN Reason Stop Dose Admin Sodium Chloride 1,000 mls @ 999 mls/hr 01/02/23 20:45 01/02/23 21:09 Ns IV 01/02/23 21:45 999 mls/hr .Q1H1M KAMLA Administration Ceftriaxone Sodium 1 gm/ 50 mls @ 100 mls/hr 01/02/23 20:46 01/02/23 21:11 Sodium Chloride IV 01/02/23 21:15 100 mls/hr ONCE ONE Administration Morphine Sulfate 4 mg 01/02/23 20:45 01/02/23 21:11 Morphine Sulfate 4 Mg/Ml Cartridge IVPUSH 01/02/23 20:46 4 mg ONCE ONE Administration Protocol Ondansetron HCl 4 mg 01/02/23 20:45 01/02/23 21:11 Ondansetron Hcl 4 Mg/2 Ml Vial IVPUSH 01/02/23 20:46 4 mg ONCE ONE Administration Critical Care Time Critical Care Time Critical Care Time: Yes Total Critical Care Time: 35 Attestation: I attest to this time spent taking care of the patient, obtaining history, physical, reviewing labs, imaging, speaking to my attending, speaking to specialist. Discharge Plan Discharge Clinical Impression: Acute cholecystitis, UTI (urinary tract infection) Patient Disposition: Admitted As Inpatient
[2023-01-02] MEDS: 0.9 % Sodium Chloride 1,000 ML 999 ML IV (21:09)
[2023-01-02] MEDS: Morphine Sulfate 4 MG/ML CARTRIDGE IVPUSH (21:11)
[2023-01-02] MEDS: ondansetron HCL 4 MG/2 ML VIAL IVPUSH (21:11)
[2023-01-02] MEDS: cefTRIAXone sodium 1 GM in 0.9 % Sodium Chloride 50 ML IV (21:11)
[2023-01-02 21:27] LABS: Lactic Acid 0.7 mmol/L (0.5-2.0)
--- NOTE | 2023-01-02 22:30 | PC.NURSE ---
Pt. order for LR went in shortly after the NS started. Will finish NS and then switch to the LR.
[2023-01-02 22:45] VITALS: BP 109/50; PULSE 51; RESP 15; TEMP 36.8; O2SAT 100
[2023-01-02 23:34] LABS: COVID-19 Test Negative (Negative); IDNOW Serial# 08D9AD1C
[2023-01-02] MEDS: Lactated Ringers 1,000 ML 125 ML IVCONT (23:44)
[2023-01-03] VITALS (15 sets, daily range): BP systolic 99–161; BP diastolic 52–82; PULSE 54–78; RESP 16–20; TEMP 36–37; O2SAT 92–100; BMI 36.6
--- NOTE | 2023-01-03 02:15 | PC.NURSE ---
Pt arrived to the unit via stretcher, she is A/O x 4, respiration is even and non-labored, ambulatory to the bathroom without any issue. Pt educated about NPO diet, her questions were answered and verbalized understanding. Pt is resting, has no concerns at this time and aware of plan of care.
[2023-01-03] MEDS: Lactated Ringers 1,000 ML 125 ML IVCONT ×2 (05:46→22:26)
[2023-01-03 06:52] LABS: Anion Gap 12 (12-20); Blood Urea Nitrogen 6 mg/dL (9-16); Calcium 8.2 mg/dL (8.4-10.2); Carbon Dioxide 23 mmol/L (22-29); Chloride 110 mmol/L (96-108); Creatinine Clr Calc Pharmacy 143.1; Estimated Glomerular Filt Rate > 60; Glucose Random 77 mg/dL (60-115); Potassium 3.7 mmol/L (3.3-5.1); Sodium 141 mmol/L (135-145)
--- NOTE | 2023-01-03 09:06 | MHC.CM.PN ---
Patient lives with her fiance and two children. No prior services or equipment. She drives self where she needs to go. PCP is Dr. Larkin (she cannot remember first name of said doctor). D/C plan is to return home with her family; she indicates she has a ride so long as she can leave in the afternoon. CM to follow.
--- NOTE | 2023-01-03 09:36 | PHA.MEDREC ---
Pharmacy Consult ? Medication Reconciliation Pharmacy has completed the medication reconciliation. Spoke to patient to confirm meds.
--- NOTE | 2023-01-03 10:34 | P.CNGI_ITS ---
History of Present Illness Data of Consult Service Date: 01/03/23 Requesting physician: Nelly Ervin Primary Care Provider: Unknown Physician HPI Reason for consult: RUQ pain, elevated LFTs 37 YF with obesity, asthma, fibromyalgia seen at [facility] on 01/02/23 for evaluation of RUQ pain with nausea and vomiting for the past 3 weeks (since 12/17/22). patient initially thought she had food poisoning. She was seen at [facility] on 12/29/22 and discharged home on anti nausea medications. Abdominal pain became worse the following day. Pt describes the pain as sharp, severe and localized to RUQ and radiates to her right flank at times and has been worsening over the past few days.? Patient complains of associated nausea and vomiting, subjective fevers and chills.? Patient notes pain is associated with eating and each time she tries to eat she vomits.? Patient still has her gallbladder.? She denied chest pain, shortness of breath, headache, vision changes, weakness, dizziness. Pt reports her abdominal pain has improved significantly since she was treated with pain medications and antibiotics. (Just has a slight pinch) Repeat labs today show improvement in LFTs. Pt admits to smoking 7-8 cigg a day and quitted since she started having the abdominal pain. She denies ETOH use. Pt has 3 children and lives with her fiance. She denies known FH of colon polyps or cancer. Her Mom has GB problems and a cousin had uterine cancer. 01/02/23 ABD US SHOWED: LIVER: The liver is enlarged measuring at least 19 cm in greatest length with increased echogenicity suggesting hepatic steatosis. On the recent CT scan the liver measured 22 cm in greatest length. The liver contour is normal. No focal hepatic lesion. There is no intrahepatic biliary duct dilatation seen. GALLBLADDER: Gallstones are present along with echogenic bile. Larios's sign is positive. No pericholecystic fluid collections are seen. COMMON BILE DUCT: Normal in caliber measuring 0.5 cm in diameter. 01/02/[address] SCAN SHOWED: LIVER, GALLBLADDER, AND BILIARY TREE: The liver is enlarged measuring 21.6 cm in cephalocaudad dimension. Attenuation is normal. No bile duct dilatation or hepatic masses are seen. The patient's gallstones are isoattenuating with the bile and are not seen on CT. There is no evidence of radiopaque gallstones, gallbladder wall thickening, or obvious pericholecystic inflammatory changes.? 01/03/23 MRCP SHOWED: *? Cholelithiasis without evidence of cholecystitis. *? The common bile duct is normal (0.4 cm diameter). No evidence of choledocholithiasis. *? Findings are suggestive of mild hepatic steatosis. Review of Systems Review of Systems: Constitutional : No Weight loss, No Fever, No Chills, No Fatigue, No Malaise ENT/Mouth : No sore throat, No Rhinorrhea Eyes: No Eye Pain, No Swelling, No Redness Cardiovascular : No Chest Pain, No SOB, No Dyspnea on Exertion, No Orthopnea, No Edema, No Palpitations Respiratory : No Cough, No Sputum, No Wheezing Gastrointestinal : + Nausea, + Vomiting, No Diarrhea, No Constipation, + abd ominal Pain, No Hematochezia, No Melena Genitourinary : No Dysuria, No Urinary Frequency, No Hematuria, Musculoskeletal : No joint pain, No Myalgias, No Joint Swelling Skin : No Skin Lesions, No rash Neuro : No Weakness, No Numbness, No Dizziness, No Headache Psych : No Anxiety/Panic, No Depression All other systems reviewed and are negative Yes all other systems are reviewed and are negative [facility] Social History Social History Household Members: Significant Other and Family Housing: Apartment Alcohol intake: never Patient Tobacco Use Status: Current someday Tobacco user Smoked in Last 30 Days: Yes Patient Interested in Nicotine Replacement: No Patient Given Instructions on How to Stop Smoking: Yes Date Education Initiated: 01/03/23 Use of substances other than those prescribed or required for medical reasons: No Substance Use Type: Marijuana Currently Displaying Signs/Symptoms of Drug Intoxication Withdrawal: No Have you been hit, kicked, punched, or otherwise hurt by someone within the past year? If so, by whom?: No Do you feel safe in your current relationship?: Yes Is there a partner from a previous relationship who is making you feel unsafe now?: No Are you made to feel afraid or neglected: No Advance Directives: No Advance Directives Information Provided: No Do you have thoughts of harming others: None Do you have a plan to hurt others: No Plan Recently lost weight without trying: No Eating poorly because of decreased appetite: No Nutrition Risks: No Nutritional Risk Patient : No : No service: No Meds Allergies Allergy/AdvReac Type Severity Reaction Status Date / Time bee pollen Allergy Anaphylaxis Verified 12/29/22 00:30 mite-Dermatophagoides Allergy Nasal Verified 12/29/22 00:31 farinae, maya congestion [dust mite - [place]] onion Allergy Anaphylaxis Verified 12/29/22 00:30 pollen extracts Allergy Nasal Verified 12/29/22 00:31 congestion seafood Allergy Anaphylaxis Verified 12/29/22 00:30 berries Allergy Anaphylaxis Uncoded 12/29/22 00:30 Active Medications: Current Medications Hydromorphone HCl (Hydromorphone Hcl 1 Mg/Ml Syringe) 0.5 mg IVPUSH Q4H PRN; Protocol PRN Reason: Pain, Severe (Pain Scale 7-10) Lactated Ringer's (Lr) 1,000 mls @ 125 mls/hr IVCONT .Q8H REPLACED BY [facility] Last Infusion: 01/03/23 09:23 Dose: 0 mls/hr Ceftriaxone Sodium 1 gm/ (Sodium Chloride) 50 mls @ 100 mls/hr IV Q12H [facility] Ondansetron HCl (Ondansetron Hcl 4 Mg/2 Ml Vial) 4 mg IVPUSH Q8H PRN PRN Reason: Nausea and Vomiting Pharmacy Consult (Consult Rx Perform Med Rec) 1 each MISCELLANE ONCE PRN PRN Reason: Consult order Sodium Chloride (0.9 % Sodium Chloride Flush 3 Ml Syringe) 3 ml IVFLUSH QSHIFT REPLACED BY [facility] Last Admin: 01/03/23 07:14 Dose: Not Given Home Medications Medication Instructions Recorded Confirmed Last Taken Type albuterol sulfate 2.5 mg/3 mL 2.5 mg inhalation Q6H PRN wheezing 01/03/23 01/03/23 Unknown History (0.083 %) solution for nebulization albuterol sulfate 90 mcg/actuation 2 puff inhalation Q4H PRN wheezing 01/03/23 01/03/23 Unknown History aerosol inhaler (Proventil HFA) budesonide-formoterol HFA 160 2 puff inhalation BID 01/03/23 01/03/23 12/29/22 History mcg-4.5 mcg/actuation aerosol inhaler (Symbicort) calcipotriene 0.005 % topical 1 appl topical BID 01/03/23 01/03/23 12/29/22 History ointment clotrimazole 1 % topical cream 1 appl topical BID PRN Rash 01/03/23 01/03/23 Unknown History cyclobenzaprine 10 mg tablet 10 mg PO TID PRN muscle spasm 01/03/23 01/03/23 Unknown History fluocinonide 0.05 % topical cream 1 appl topical BID PRN Rash 01/03/23 01/03/23 Unknown History fluoxetine 10 mg capsule 10 mg PO DAILY 01/03/23 01/03/23 12/29/22 History fluoxetine 20 mg capsule 20 mg PO DAILY 01/03/23 01/03/23 12/29/22 History fluticasone propionate 50 1 spray intranasal DAILY PRN 01/03/23 01/03/23 12/29/22 History mcg/actuation nasal Allergy Symptoms spray,suspension gabapentin 100 mg capsule 100 mg PO TID 01/03/23 01/03/23 12/29/22 History hydrocortisone 2.5 % topical 1 appl topical BID PRN psoriasis 01/03/23 01/03/23 Unknown History ointment ibuprofen 800 mg tablet 800 mg PO TID PRN pain 01/03/23 01/03/23 Unknown History loratadine 10 mg tablet 10 mg PO DAILY PRN allergies 01/03/23 01/03/23 Unknown History montelukast 10 mg tablet 10 mg PO BEDTIME 01/03/23 01/03/23 12/29/22 History ondansetron 4 mg disintegrating 4 mg PO Q6-8H PRN nausea/vomiting 01/03/23 01/03/23 Unknown History tablet pantoprazole 40 mg tablet,delayed 40 mg PO DAILY@0630 01/03/23 01/03/23 12/29/22 History release prazosin 2 mg capsule 2 mg PO BEDTIME 01/03/23 01/03/23 12/29/22 History sumatriptan succinate 50 mg tablet 50 mg PO DAILY PRN migraine 01/03/23 01/03/23 Unknown History trazodone 100 mg tablet 100 mg PO BEDTIME PRN Insomnia 01/03/23 01/03/23 Unknown History triamcinolone acetonide 0.025 % 1 appl topical BID 01/03/23 01/03/23 12/29/22 History topical cream Physical Exam Vital Signs: Vital Signs: Last Vital Signs Temp 97.3 F 01/03/23 07:52 Pulse 64 01/03/23 07:52 Resp 16 01/03/23 07:52 BP 99/54 L 01/03/23 07:52 Pulse Ox 96 01/03/23 07:52 O2 Del Method Room Air 01/03/23 07:52 BMI result Body Mass Index 36.6 Const: General: healthy appearing and no acute distress Nutritional Appearance: obese Orientation/consciousness: patient oriented x3 Limitations: no limitations HEENT: Head: Yes normal to inspection Ears: hearing grossly normal bilaterally Eyes: Sclerae: sclerae normal Pupils: Equal, round and reactive pupils present Neck: Neck: Yes normal visual inspection Chest: Chest palpation & inspection: normal inspection of the chest Resp: Effort & Inspection: normal respiratory effort Auscultation: clear to auscultation bilaterally Cardio: Palpation: normal PMI Rate: regular rate Rhythm: regular rhythm Heart sounds: S1 normal heart sound present, S2 normal heart sound present and no murmurs GI: Palpation (GI): Soft to palpation, nontender and No hepatosplenomegaly present Auscultation: normal bowel sounds Rectal Exam - Female: deferred Skin: General skin exam: no rashes or lesions noted Neuro: General: patient oriented x3, gait normal and moves all extremities Cranial nerves: Yes Equal, round and reactive pupils present Psych: Appearance: grossly normal Mental Status: mental status grossly normal Results Labs 01/02/23 17:01 01/03/23 05:48 Labs: Short CBC 01/02/23 Range/Units 17:01 WBC 6.8 (4.8-10.8) X10*3/uL Hgb 13.6 (12.0-16.0) g/dl Hct 40.3 (37.0-47.0) % Plt Count 387 (160-400) X10*3/uL BMP 01/02/23 01/03/23 17:01 05:48 Sodium 143 141 Potassium 3.9 3.7 Chloride 112 H 110 H Carbon Dioxide 21 L 23 BUN 9 6 L Creatinine 0.82 0.72 Calcium 9.4 8.2 L D Liver Function 01/02/23 Range/Units 17:01 Total Bilirubin 1.7 H (0.0-1.0) mg/dL AST 352 H (5-31) U/L ALT 347 H (0-31) U/L Alkaline Phosphatase 179 H (39-117) U/L Albumin 4.2 (3.5-5.0) g/dL Urine 01/02/23 Range/Units 17:05 Urine Color Dark Yellow Urine Appearance Cloudy Urine pH 5.5 (5.0-9.0) Ur Specific [place] >= 1.030 H (1.005-1.025) Urine Protein Trace (Neg-Trace) mg/dL Urine Glucose (UA) Negative (Negative) mg/dL Assessment and Plan (1) Elevated LFTs: Status: Acute (2) Acute cholecystitis: Status: Acute Plan 37 YF with obesity, asthma, fibromyalgia seen at [facility] on 01/02/23 for evaluation of sharp and severe RUQ pain for the past 3 weeks (since 12/17/22). Pt reports her abdominal pain has improved significantly since she was treated with pain medications and antibiotics. Repeat labs today show improvement in LFTs. Abd US showed gallstones are present along with echogenic bile MRCP did not show any CBD stone or obstruction Abdominal pain likely of biliary source due to passage of a CBD stone. Stone appears to have passed spontaneously since her LFTs are improving RECOMMENDATIONS: 1. Follow LFTs daily. 2. Continue IV antibiotics and pain medications. 3. OK to proceed with Lap [facility] Time Spent With Patient Time: Total time managing care of this patient today ____ minutes. Procedures Date of Service Date of Service: 01/03/23
[2023-01-03] MEDS: cefTRIAXone sodium 1 GM in 0.9 % Sodium Chloride 50 ML IV ×2 (10:50→23:51)
[2023-01-03 11:18] LABS: Alanine Aminotransferase 305 U/L (0-31); Albumin Level 3.3 g/dL (3.5-5.0); Alkaline Phosphatase 146 U/L (39-117); Aspartate Amino Transferase 176 U/L (5-31); Bilirubin Direct 0.3 mg/dL (0.0-0.5); Bilirubin Total 0.7 mg/dL (0.0-1.0); Total Protein 5.5 g/dL (6.5-8.0)
[2023-01-03 11:46] LABS: Vitamin B12 444 pg/mL (200-900)
--- NOTE | 2023-01-03 13:23 | P.HPGS_ITS ---
History of Present Illness History of Present Illness Date of Service: 01/03/23 Chief complaint: acute gb r/o cbd stones Narrative: Janette Aleman is a 37 year old female who presents here with a several-day history of right upper quadrant pain Radiating around to her back. She has tinoco d associated nausea vomiting. she has no other GI complaints or problems. She normally tolerates a regular diet And having normal bowel habits. She has never been jaundiced before. Chart was reviewed and patient evaluated. [facility] Social History Social History Household Members: Significant Other and Family Housing: Apartment Alcohol intake: never Patient Tobacco Use Status: Current someday Tobacco user Smoked in Last 30 Days: Yes Patient Interested in Nicotine Replacement: No Patient Given Instructions on How to Stop Smoking: Yes Date Education Initiated: 01/03/23 Use of substances other than those prescribed or required for medical reasons: No Substance Use Type: Marijuana Currently Displaying Signs/Symptoms of Drug Intoxication Withdrawal: No Have you been hit, kicked, punched, or otherwise hurt by someone within the past year? If so, by whom?: No Do you feel safe in your current relationship?: Yes Is there a partner from a previous relationship who is making you feel unsafe now?: No Are you made to feel afraid or neglected: No Advance Directives: No Advance Directives Information Provided: No Do you have thoughts of harming others: None Do you have a plan to hurt others: No Plan Recently lost weight without trying: No Eating poorly because of decreased appetite: No Nutrition Risks: No Nutritional Risk Patient : No : No service: No Meds Allergies Allergy/AdvReac Type Severity Reaction Status Date / Time bee pollen Allergy Anaphylaxis Verified 12/29/22 00:30 mite-Dermatophagoides Allergy Nasal Verified 12/29/22 00:31 farinae, maya congestion [dust mite - [place]] onion Allergy Anaphylaxis Verified 12/29/22 00:30 pollen extracts Allergy Nasal Verified 12/29/22 00:31 congestion seafood Allergy Anaphylaxis Verified 12/29/22 00:30 berries Allergy Anaphylaxis Uncoded 12/29/22 00:30 Active Medications: Current Medications Hydromorphone HCl (Hydromorphone Hcl 1 Mg/Ml Syringe) 0.5 mg IVPUSH Q4H PRN; Protocol PRN Reason: Pain, Severe (Pain Scale 7-10) Lactated Ringer's (Lr) 1,000 mls @ 125 mls/hr IVCONT .Q8H [facility] Last Infusion: 01/03/23 12:41 Dose: 0 mls/hr Ceftriaxone Sodium 1 gm/ (Sodium Chloride) 50 mls @ 100 mls/hr IV Q12H [facility] Last Infusion: 01/03/23 11:24 Dose: Infused Ondansetron HCl (Ondansetron Hcl 4 Mg/2 Ml Vial) 4 mg IVPUSH Q8H PRN PRN Reason: Nausea and Vomiting Pharmacy Consult (Consult Rx Perform Med Rec) 1 each MISCELLANE ONCE PRN PRN Reason: Consult order Sodium Chloride (0.9 % Sodium Chloride Flush 3 Ml Syringe) 3 ml IVFLUSH QSHIFT [facility] Last Admin: 01/03/23 07:14 Dose: Not Given Home Medications Medication Instructions Recorded Confirmed Last Taken Type albuterol sulfate 2.5 mg/3 mL 2.5 mg inhalation Q6H PRN wheezing 01/03/23 01/03/23 Unknown History (0.083 %) solution for nebulization albuterol sulfate 90 mcg/actuation 2 puff inhalation Q4H PRN wheezing 01/03/23 01/03/23 Unknown History aerosol inhaler (Proventil HFA) budesonide-formoterol HFA 160 2 puff inhalation BID 01/03/23 01/03/23 12/29/22 History mcg-4.5 mcg/actuation aerosol inhaler (Symbicort) calcipotriene 0.005 % topical 1 appl topical BID 01/03/23 01/03/23 12/29/22 History ointment clotrimazole 1 % topical cream 1 appl topical BID PRN Rash 01/03/23 01/03/23 Unknown History cyclobenzaprine 10 mg tablet 10 mg PO TID PRN muscle spasm 01/03/23 01/03/23 Unknown History fluocinonide 0.05 % topical cream 1 appl topical BID PRN Rash 01/03/23 01/03/23 Unknown History fluoxetine 10 mg capsule 10 mg PO DAILY 01/03/23 01/03/23 12/29/22 History fluoxetine 20 mg capsule 20 mg PO DAILY 01/03/23 01/03/23 12/29/22 History fluticasone propionate 50 1 spray intranasal DAILY PRN 01/03/23 01/03/23 12/29/22 History mcg/actuation nasal Allergy Symptoms spray,suspension gabapentin 100 mg capsule 100 mg PO TID 01/03/23 01/03/23 12/29/22 History hydrocortisone 2.5 % topical 1 appl topical BID PRN psoriasis 01/03/23 01/03/23 Unknown History ointment ibuprofen 800 mg tablet 800 mg PO TID PRN pain 01/03/23 01/03/23 Unknown History loratadine 10 mg tablet 10 mg PO DAILY PRN allergies 01/03/23 01/03/23 Unknown History montelukast 10 mg tablet 10 mg PO BEDTIME 01/03/23 01/03/23 12/29/22 History ondansetron 4 mg disintegrating 4 mg PO Q6-8H PRN nausea/vomiting 01/03/23 01/03/23 Unknown History tablet pantoprazole 40 mg tablet,delayed 40 mg PO DAILY@0630 01/03/23 01/03/23 12/29/22 History release prazosin 2 mg capsule 2 mg PO BEDTIME 01/03/23 01/03/23 12/29/22 History sumatriptan succinate 50 mg tablet 50 mg PO DAILY PRN migraine 01/03/23 01/03/23 Unknown History trazodone 100 mg tablet 100 mg PO BEDTIME PRN Insomnia 01/03/23 01/03/23 Unknown History triamcinolone acetonide 0.025 % 1 appl topical BID 01/03/23 01/03/23 12/29/22 History topical cream Physical Exam Vital Signs: Vital Signs: Last Vital Signs Temp 97.4 F 01/03/23 13:16 Pulse 76 01/03/23 13:16 Resp 16 01/03/23 13:16 BP 126/60 01/03/23 13:16 Pulse Ox 98 01/03/23 13:16 O2 Del Method Room Air 01/03/23 13:16 BMI result Body Mass Index 36.6 GI: Other: Abdominal exam is most noteworthy for a very corpulent abdomen with marked right upper quadrant tenderness. Positive Larios sign. Results Results Labs: Short CBC 01/02/23 Range/Units 17:01 WBC 6.8 (4.8-10.8) X10*3/uL Hgb 13.6 (12.0-16.0) g/dl Hct 40.3 (37.0-47.0) % Plt Count 387 (160-400) X10*3/uL BMP 01/02/23 01/03/23 17:01 05:48 Sodium 143 141 Potassium 3.9 3.7 Chloride 112 H 110 H Carbon Dioxide 21 L 23 BUN 9 6 L Creatinine 0.82 0.72 Calcium 9.4 8.2 L D Liver Function 01/02/23 01/03/23 Range/Units 17:01 05:48 Total Bilirubin 1.7 H 0.7 (0.0-1.0) mg/dL Direct Bilirubin 0.3 (0.0-0.5) mg/dL AST 352 H 176 H (5-31) U/L ALT 347 H 305 H (0-31) U/L Alkaline Phosphatase 179 H 146 H (39-117) U/L Albumin 4.2 3.3 L (3.5-5.0) g/dL Urine 01/02/23 Range/Units 17:05 Urine Color Dark Yellow Urine Appearance Cloudy Urine pH 5.5 (5.0-9.0) Ur Specific [place] >= 1.030 H (1.005-1.025) Urine Protein Trace (Neg-Trace) mg/dL Urine Glucose (UA) Negative (Negative) mg/dL Assessment and Plan (1) Acute cholecystitis: Status: Acute (2) Elevated LFTs: Status: Acute Plan Sonographic and clinical findings are consistent with acute cholecystitis. Patient also has elevation of her bilirubin. Current plan is to admit the patient, placed NPO, IV hydration, repeat LFTs, GI consult, possible ERCP or MRCP, repeat labs and direct further therapy based on these results and patient's clinical course. Incidental finding of UTI I discussed with the patient possibility of laparoscopic possible open cholecystectomy as well including but not limited to bleeding, infection, recurrence of symptoms, numbness, pain, scarring, bowel or duct injury or leak. We will try to do this as expediently as possible based on the above-mentioned labs and GI input. Time Spent With Patient Time: Total time managing care of this patient today ____ minutes. Quality Stroke Does the patient have a stroke diagnosis?: No VTE Prior VTE?: No VTE Risk Level:: Surgical - moderate VTE Device Contraindication: N/A - Device Ordered VTE Drug Contraindication: N/A - Med Ordered Procedures Date of Service Date of Service: 01/02/23
--- NOTE | 2023-01-03 14:27 | HO.ANESPROP2 ---
[facility] Active Problems Active Problems: All Active Problems (Updated 01/03/23 @ 10:42 by Franc Thomas MD) Elevated LFTs (Acute) Acute cholecystitis (Acute) UTI (urinary tract infection) (Acute) Past Medical History Functional capacity: independent ambulation Patient : No Surgical History History of Problems with Anesthesia: No Social History Social History Household Members: Significant Other and Family Housing: Apartment Alcohol intake: never Patient Tobacco Use Status: Current someday Tobacco user Smoked in Last 30 Days: Yes Patient Interested in Nicotine Replacement: No Patient Given Instructions on How to Stop Smoking: Yes Date Education Initiated: 01/03/23 Use of substances other than those prescribed or required for medical reasons: No Substance Use Type: Marijuana Currently Displaying Signs/Symptoms of Drug Intoxication Withdrawal: No Have you been hit, kicked, punched, or otherwise hurt by someone within the past year? If so, by whom?: No Do you feel safe in your current relationship?: Yes Is there a partner from a previous relationship who is making you feel unsafe now?: No Are you made to feel afraid or neglected: No Advance Directives: No Advance Directives Information Provided: No Do you have thoughts of harming others: None Do you have a plan to hurt others: No Plan Recently lost weight without trying: No Eating poorly because of decreased appetite: No Nutrition Risks: No Nutritional Risk Patient : No : No service: No Meds Allergies Allergy/AdvReac Type Severity Reaction Status Date / Time bee pollen Allergy Anaphylaxis Verified 12/29/22 00:30 mite-Dermatophagoides Allergy Nasal Verified 12/29/22 00:31 farinae, maya congestion [dust mite - [place]] onion Allergy Anaphylaxis Verified 12/29/22 00:30 pollen extracts Allergy Nasal Verified 12/29/22 00:31 congestion seafood Allergy Anaphylaxis Verified 12/29/22 00:30 berries Allergy Anaphylaxis Uncoded 12/29/22 00:30 Active Medications: Current Medications Hydromorphone HCl (Hydromorphone Hcl 1 Mg/Ml Syringe) 0.5 mg IVPUSH Q4H PRN; Protocol PRN Reason: Pain, Severe (Pain Scale 7-10) Lactated Ringer's (Lr) 1,000 mls @ 125 mls/hr IVCONT .Q8H [facility] Last Infusion: 01/03/23 12:41 Dose: 0 mls/hr Ceftriaxone Sodium 1 gm/ (Sodium Chloride) 50 mls @ 100 mls/hr IV Q12H [facility] Last Infusion: 01/03/23 11:24 Dose: Infused Ondansetron HCl (Ondansetron Hcl 4 Mg/2 Ml Vial) 4 mg IVPUSH Q8H PRN PRN Reason: Nausea and Vomiting Pharmacy Consult (Consult Rx Perform Med Rec) 1 each MISCELLANE ONCE PRN PRN Reason: Consult order Sodium Chloride (0.9 % Sodium Chloride Flush 3 Ml Syringe) 3 ml IVFLUSH QSHIFT [facility] Last Admin: 01/03/23 07:14 Dose: Not Given Home Medications Medication Instructions Recorded Confirmed Last Taken Type albuterol sulfate 2.5 mg/3 mL 2.5 mg inhalation Q6H PRN wheezing 01/03/23 01/03/23 Unknown History (0.083 %) solution for nebulization albuterol sulfate 90 mcg/actuation 2 puff inhalation Q4H PRN wheezing 01/03/23 01/03/23 Unknown History aerosol inhaler (Proventil HFA) budesonide-formoterol HFA 160 2 puff inhalation BID 01/03/23 01/03/23 12/29/22 History mcg-4.5 mcg/actuation aerosol inhaler (Symbicort) calcipotriene 0.005 % topical 1 appl topical BID 01/03/23 01/03/23 12/29/22 History ointment clotrimazole 1 % topical cream 1 appl topical BID PRN Rash 01/03/23 01/03/23 Unknown History cyclobenzaprine 10 mg tablet 10 mg PO TID PRN muscle spasm 01/03/23 01/03/23 Unknown History fluocinonide 0.05 % topical cream 1 appl topical BID PRN Rash 01/03/23 01/03/23 Unknown History fluoxetine 10 mg capsule 10 mg PO DAILY 01/03/23 01/03/23 12/29/22 History fluoxetine 20 mg capsule 20 mg PO DAILY 01/03/23 01/03/23 12/29/22 History fluticasone propionate 50 1 spray intranasal DAILY PRN 01/03/23 01/03/23 12/29/22 History mcg/actuation nasal Allergy Symptoms spray,suspension gabapentin 100 mg capsule 100 mg PO TID 01/03/23 01/03/23 12/29/22 History hydrocortisone 2.5 % topical 1 appl topical BID PRN psoriasis 01/03/23 01/03/23 Unknown History ointment ibuprofen 800 mg tablet 800 mg PO TID PRN pain 01/03/23 01/03/23 Unknown History loratadine 10 mg tablet 10 mg PO DAILY PRN allergies 01/03/23 01/03/23 Unknown History montelukast 10 mg tablet 10 mg PO BEDTIME 01/03/23 01/03/23 12/29/22 History ondansetron 4 mg disintegrating 4 mg PO Q6-8H PRN nausea/vomiting 01/03/23 01/03/23 Unknown History tablet pantoprazole 40 mg tablet,delayed 40 mg PO DAILY@0630 01/03/23 01/03/23 12/29/22 History release prazosin 2 mg capsule 2 mg PO BEDTIME 01/03/23 01/03/23 12/29/22 History sumatriptan succinate 50 mg tablet 50 mg PO DAILY PRN migraine 01/03/23 01/03/23 Unknown History trazodone 100 mg tablet 100 mg PO BEDTIME PRN Insomnia 01/03/23 01/03/23 Unknown History triamcinolone acetonide 0.025 % 1 appl topical BID 01/03/23 01/03/23 12/29/22 History topical cream Exam Exam Date and Time: January 03, 2023 1427 Height,Weight and Vital Signs: Height 5 ft 9 in Weight 112.5 kg Last Vital Signs Temp 97.4 F 01/03/23 13:16 Pulse 76 01/03/23 13:16 Resp 16 01/03/23 13:16 BP 126/60 01/03/23 13:16 Pulse Ox 98 01/03/23 13:16 O2 Del Method Room Air 01/03/23 13:16 Pertinent Lab Results Pertinent Lab Results: Laboratory Tests 01/02/23 01/02/23 01/02/23 17:01 17:01 17:05 WBC 6.8 RBC 4.68 Hgb 13.6 Hct 40.3 MCV 86.1 MCH 29.1 MCHC 33.7 RDW 13.7 Plt Count 387 MPV 9.2 L Immature Gran % (Auto) 0.7 H Neut % (Auto) 69.5 Lymph % (Auto) 19.5 L [place] % (Auto) 6.7 Eos % (Auto) 3.2 Baso % (Auto) 0.4 Lymph # (Auto) 1.3 [place] # (Auto) 0.5 Eos # (Auto) 0.2 Baso # (Auto) 0.0 Abs Immat Gran (auto) 0.05 H Absolute Neuts (auto) 4.7 Absolute Nucleated RBC 0.000 Nucleated RBC % (auto) 0.0 Sodium 143 Potassium 3.9 Chloride 112 H Carbon Dioxide 21 L Anion Gap 14 BUN 9 Creatinine 0.82 Estim Creat Clear Calc 123.4 Estimated GFR > 60 Random Glucose 90 Lactic Acid Calcium 9.4 Magnesium 2.4 Total Bilirubin 1.7 H Direct Bilirubin AST 352 H ALT 347 H Alkaline Phosphatase 179 H Total Protein 7.0 Albumin 4.2 Lipase 18 Vitamin B12 Beta HCG, Quant < 2 Urine Color Dark Yellow Urine Appearance Cloudy Urine pH 5.5 Ur Specific [place] >= 1.030 H Urine Protein Trace Urine Glucose (UA) Negative Urine Ketones Trace Urine Blood Moderate (2+) H Urine Nitrite Positive H Ur Leukocyte Esterase Moderate (2+) H Urine RBC >20 H Urine WBC 21-50 H Ur Squamous Epith Cells 11-20 Urine Bacteria 4+ Hyaline Casts 11-20 COVID-19 (RUMA) COVID-19 Clin Com 01/02/23 01/02/23 01/03/23 20:57 23:13 05:48 WBC RBC Hgb Hct MCV MCH MCHC RDW Plt Count MPV Immature Gran % (Auto) Neut % (Auto) Lymph % (Auto) [place] % (Auto) Eos % (Auto) Baso % (Auto) Lymph # (Auto) [place] # (Auto) Eos # (Auto) Baso # (Auto) Abs Immat Gran (auto) Absolute Neuts (auto) Absolute Nucleated RBC Nucleated RBC % (auto) Sodium 141 Potassium 3.7 Chloride 110 H Carbon Dioxide 23 Anion Gap 12 BUN 6 L Creatinine 0.72 Estim Creat Clear Calc 143.1 Estimated GFR > 60 Random Glucose 77 Lactic Acid 0.7 Calcium 8.2 L D Magnesium Total Bilirubin 0.7 Direct Bilirubin 0.3 AST 176 H ALT 305 H Alkaline Phosphatase 146 H Total Protein 5.5 L Albumin 3.3 L Lipase Vitamin B12 444 Beta HCG, Quant Urine Color Urine Appearance Urine pH Ur Specific [place] Urine Protein Urine Glucose (UA) Urine Ketones Urine Blood Urine Nitrite Ur Leukocyte Esterase Urine RBC Urine WBC Ur Squamous Epith Cells Urine Bacteria Hyaline Casts COVID-19 (RUMA) Negative COVID-19 Clin Com See Note Airway Mallampati Class: III TM Dist: >3cm Neck ROM: Full Heart: RRR Lungs: CTA Assessment and Plan Final Anesthetic Review History of Problems with Anesthesia: No NPO: Yes ASA Class: III and Emergency Final Preanesthetic Review: Meds/Allgs Chart Reviewed and Consent Obtained/Reviewed Patient Risk: Intermediate Procedure Risk: Intermediate Anesthetic Plan Anesthetic Plan: GA Disposition: Standard PACU
--- NOTE | 2023-01-03 15:02 | W.PM.OPN ---
Operative Note Operative Note Date of Service: 01/03/23 Narrative: Preoperative diagnosis: [] acute cholecystitis Postop diagnosis: [] same Surgeon: [] Wilver Vapor Coater: [] surgical scrub technologist Type of Anesthesia: [] general Indication for surgery: [] symptomatic cholecystitis acute Findings: edematous inflamed gallbladder with multiple small gallstones. Omental adhesions to the gallbladder. [] Procedure: [] Patient brought to the operating room, placed on the operating table in a supine position, and after an adequate level of general anesthesia was induced, the patient's abdomen which was very corpulent was prepped and draped in usual sterile fashion. Using a supraumbilical curvilinear incision, Clayton technique was used to insufflated abdominal cavity to 15 mm of CO2. Upper midline and right subcostal ports were placed on direct laparoscopic view, and the patient was placed in reverse Trendelenburg position, and tilted to the left. Findings were as noted above. Through the lateral right subcostal port, gallbladder was fundus was grasped and retracted superiorly and laterally. Next the Nikhil's pouch was grasped with the other retractor and retracted laterally. Soft omental adhesions were swept off the gallbladder and the hilum was approached. Cystic artery and cystic duct were each identified, circumferentially skeletonized, and each traced directly into the gallbladder. Critical view was obtained. Each was clipped proximally x2, distally x1, transected. A small posterior accessory branch of the artery was similarly identified and a single clip was placed o uneven this ueventtfully and transected. Gallbladder which was moderately intrahepatic was then cauterized from the gallbladder fossa using electro Bovie. Specimen was placed in an Endo-Catch bag, a retrieved through the umbilical port. The abdominal cavity was very copiously irrigated, and secured hemostasis. All ports were removed under direct laparoscopic view. Wounds were closed in the following manner; umbilical wound has fascia reapproximated using interrupted 0 Vicryl sutures. Skin wounds were closed using subcuticular 4-0 Vicryl sutures followed by Steri-Strips and sterile dressings. Wounds were infiltrated with 0.5% Marcaine with epinephrine at completion. Sponge, needle, and instrument counts were reported to be correct. Patient tolerated the procedure well and emerged from anesthesia in stable condition. EBL minimal
[2023-01-03] MEDS: Acetaminophen 1,000 MG/100 ML PIGGYBACK 400 MG IV (15:08)
[2023-01-03] MEDS: HYDROmorphone HCl 1 MG/ML SYRINGE 0.5 MG IVPUSH (15:17)
[2023-01-03] MEDS: HYDROmorphone HCl 0.5 MG/0.5 ML SYRINGE IVPUSH ×3 (17:09→23:57)
[2023-01-03] MEDS: ondansetron HCL 4 MG/2 ML VIAL IVPUSH (18:30)
[2023-01-03] MEDS: Montelukast Sodium 10 MG TABLET PO (19:40)
[2023-01-03] MEDS: Gabapentin 100 MG CAPSULE PO (19:40)
[2023-01-04] VITALS (7 sets, daily range): BP systolic 112–145; BP diastolic 56–66; PULSE 57–89; RESP 16–18; TEMP 36.1–36.4; O2SAT 95–99
[2023-01-04] MEDS: Albuterol Sulfate 90 MCG 8 GM INHALER 2 PUFF INHALE (03:56)
[2023-01-04] MEDS: Omeprazole 20 MG CAPSULE.DR PO (05:10)
[2023-01-04] MEDS: HYDROmorphone HCl 0.5 MG/0.5 ML SYRINGE IVPUSH ×2 (05:10→08:54)
[2023-01-04] MEDS: Lactated Ringers 1,000 ML 125 ML IVCONT (05:50)
[2023-01-04] MEDS: Fluticasone/Vilanterol 200/25 BLST.W.DEV 1 PUFF INHALE (08:31)
--- NOTE | 2023-01-04 09:23 | P.PNGS_ITS ---
Subjective Subjective Date of Service: 01/04/23 Interval history: Aside from incisional discomfort/pain, patient is otherwise doing well. Tolerating p.o.. Physical Exam Vital Signs: Vital Signs: Last Vital Signs Temp 97.2 F 01/04/23 07:29 Pulse 67 01/04/23 08:33 Resp 18 01/04/23 08:33 BP 127/60 01/04/23 07:29 Pulse Ox 97 01/04/23 07:29 O2 Del Method Room Air 01/04/23 07:29 O2 Flow Rate 2 01/03/23 19:00 BMI result Body Mass Index 36.6 GI: Other: Abdomen soft. Wound clean dry and intact. Objective Data Active Medications Albuterol Sulfate (Albuterol Sulfate (0.083%) 2.5 Mg/3 Ml Vial.Neb) 2.5 mg INHALE Q6H PRN PRN Reason: wheezing Albuterol Sulfate (Albuterol Sulfate 90 Mcg 8 Gm Inhaler) 2 puff INHALE Q4H PRN PRN Reason: wheezing Last Admin: 01/04/23 03:56 Dose: 2 puff Documented By: ALISON Clotrimazole (Clotrimazole 1 % Cream 15 Gm Tube) 1 appl TOPICAL BID PRN; Protocol PRN Reason: Rash Cyclobenzaprine HCl (Cyclobenzaprine Hcl 10 Mg Tablet) 10 mg PO TID PRN PRN Reason: muscle spasm Fluoxetine HCl (Fluoxetine Hcl 10 Mg Capsule) 10 mg PO DAILY [facility] Last Admin: 01/04/23 07:47 Dose: Not Given Documented By: SACHIN Non-Admin Reason: Patient Refused Fluoxetine HCl (Fluoxetine Hcl 20 Mg Capsule) 20 mg PO DAILY [facility] Last Admin: 01/04/23 07:47 Dose: Not Given Documented By: SACHIN Non-Admin Reason: Patient Refused Fluticasone Propionate (Fluticasone Propionate Nasal 16 Gm [place]) 1 spray NOSTRIL-B DAILY PRN PRN Reason: Allergy Symptoms Fluticasone/Vilanterol (Fluticasone/Vilanterol 200/25 Blst.W.Dev) 1 puff INHALE RDAILY [facility] Last Admin: 01/04/23 08:31 Dose: 1 puff Documented By: GAVIN Gabapentin (Gabapentin 100 Mg Capsule) 100 mg PO TID [facility] Last Admin: 01/04/23 07:47 Dose: Not Given Documented By: SACHIN Non-Admin Reason: Patient Refused Hydrocortisone (Hydrocortisone 1 % Ointment 28.35 Gm Tube) 1 appl TOPICAL BID PRN PRN Reason: psoriasis Hydromorphone HCl (Hydromorphone Hcl 0.5 Mg/0.5 Ml Syringe) 0.5 mg IVPUSH Q2H PRN; Protocol PRN Reason: Pain, Severe (Pain Scale 7-10) Last Admin: 01/04/23 08:54 Dose: 0.5 mg Documented By: SACHIN Lactated Ringer's (Lr) 1,000 mls @ 125 mls/hr IVCONT .Q8H [facility] Last Admin: 01/04/23 05:50 Dose: 125 mls/hr Documented By: WINNIE Ceftriaxone Sodium 1 gm/ (Sodium Chloride) 50 mls @ 100 mls/hr IV Q12H [facility] Last Infusion: 01/04/23 00:39 Dose: 0 mls/hr Documented By: WINNIE Loratadine (Loratadine 10 Mg Tablet) 10 mg PO DAILY PRN PRN Reason: allergies Montelukast Sodium (Montelukast Sodium 10 Mg Tablet) 10 mg PO BEDTIME [facility] Last Admin: 01/03/23 19:40 Dose: 10 mg Documented By: WINNIE Non-Formulary Medication (Calcipotriene) 1 appl TOPICAL BID [facility] Non-Formulary Medication (Fluocinonide) 1 appl TOPICAL BID PRN PRN Reason: Rash Omeprazole (Omeprazole 20 Mg Capsule.Dr) 20 mg PO DAILY@0630 [facility] Last Admin: 01/04/23 05:10 Dose: 20 mg Documented By: WINNIE Ondansetron HCl (Ondansetron Hcl 4 Mg/2 Ml Vial) 4 mg IVPUSH Q8H PRN PRN Reason: Nausea and Vomiting Last Admin: 01/03/23 18:30 Dose: 4 mg Documented By: RHONA Ondansetron HCl (Ondansetron Hcl 4 Mg/2 Ml Vial) 4 mg IVPUSH ONCE PRN PRN Reason: Nausea and Vomiting Ondansetron HCl (Ondansetron Odt 4 Mg Tab.Rapdis) 4 mg TRANSLINGU Q6H PRN PRN Reason: nausea/vomiting Pharmacy Consult (Consult Rx Perform Med Rec) 1 each MISCELLANE ONCE PRN PRN Reason: Consult order Prazosin HCl (Prazosin Hcl 1 Mg Capsule) 2 mg PO BEDTIME KAMLA; Protocol Last Admin: 01/03/23 19:54 Dose: Not Given Documented By: WINNIE Non-Admin Reason: Patient Refused Sumatriptan Succinate (Sumatriptan Succinate 50 Mg Tablet) 50 mg PO DAILY PRN PRN Reason: migraine Trazodone HCl (Trazodone Hcl 100 Mg Tablet) 100 mg PO BEDTIME PRN PRN Reason: Insomnia Triamcinolone Acetonide (Triamcinolone Acet 0.025 % Cream 15 Gm Tube) 1 appl TO PICAL BID KAMLA; Protocol Last Admin: 01/04/23 07:47 Dose: Not Given Documented By: SACHIN Non-Admin Reason: Patient Refused Labs 01/02/23 17:01 01/03/23 05:48 Labs: Laboratory Results - last 24 hr 01/03/23 05:48 Total Bilirubin 0.7 Direct Bilirubin 0.3 AST 176 H ALT 305 H Alkaline Phosphatase 146 H Total Protein 5.5 L Albumin 3.3 L Vitamin B12 444 Microbiology Microbiology Results: Microbiology 01/02/23 20:57 Blood Culture - Preliminary Blood - Venous No growth after 24 hours. 01/02/23 20:57 Blood Culture - Preliminary Blood - Venous No growth after 24 hours. 01/02/23 18:11 Urine Culture - Preliminary Urine clean catch - Urine durant top Culture too young to evaluate. Procedures Date of Service Date of Service: 01/04/23 Progress Note: A&P Assessment and plan (1) Acute cholecystitis: Status: Acute Plan Out of bed, ambulate, advanced diet as tolerated, pain control, anticipate d ischarge home later today if all goes well. Will add Cipro antibiotics on discharge for UTI Time Spent With Patient Time: Total time managing care of this patient today ____ minutes. Quality Stroke Does the patient have a stroke diagnosis?: No VTE Prior VTE?: No VTE Risk Level:: Surgical - moderate VTE Device Contraindication: N/A - Device Ordered VTE Drug Contraindication: N/A - Med Ordered
[2023-01-04] MEDS: cefTRIAXone sodium 1 GM in 0.9 % Sodium Chloride 50 ML IV (09:43)
--- NOTE | 2023-01-04 10:17 | HO.POSTANES ---
Post Anesthesia Evaluation Post Anesthesia Evaluation Vital Signs: Vital Signs Temp Pulse Resp BP Pulse Ox O2 Del Method 01/04/23 08:33 67 18 01/04/23 07:29 97.2 F 63 16 127/60 97 Room Air 01/04/23 06:47 65 16 133/62 97 Room Air 01/04/23 03:56 89 16 01/04/23 03:10 97.2 F 62 16 112/56 L 97 Room Air 01/03/23 23:28 97.6 F 70 16 135/59 L 97 Nasal Cannula Anesthesia: General Endotracheal-GETA Mental Status: Awake Pain Control: Satisfactory Nausea/Vomiting: None Hydration: Adequate Anesthesia-Related Issues: No Anes. Related Issues
[2023-01-04] MEDS: Acetaminophen 325 MG TABLET 650 MG PO (10:54)
[2023-01-04] MEDS: Phenazopyridine HCL 100 MG TABLET PO (11:59)
[2023-01-04] MEDS: oxyCODONE HCl Immed Release 5 MG TABLET 10 MG PO (12:15)
--- NOTE | 2023-01-04 15:36 | MHC.CM.PN ---
PT WILL DC HOME TODAY WITH NO SERVICES VIA PRIVATE TRANSPORT
--- NOTE | 2023-01-05 14:24 | PM.DS ---
DS: Providers Provider Date of Service: 01/04/23 Date of admission: 01/02/23 20:59 Primary care physician: Paolo Larkin MD Attending physician on admission: Eleno Pettit Consults: 01/02/23 21:19 Consult to Gastroenterology Stat Consulting Provider: Franc Thomas Reason for consultation: ruq pain Has provider been notified: No DS: Diagnosis Discharge Diagnosis (1) Acute cholecystitis: Status: Acute DS: Summary Hospital Course Hospital Course: HPI AT ADMISSION: Janette Aleman is a 37 year old female who presents here with a several-day history of right upper quadrant pain Radiating around to her back. She has had associated nausea vomiting. she has no other GI complaints or problems. She normally tolerates a regular diet And having normal bowel habits. She has never been jaundiced before. Chart was reviewed and patient evaluated. Sonographic and clinical findings are consistent with acute cholecystitis. HOSPITAL COURSE: ?The patient was admitted to the surgical service for further treatment of acute cholecystitis. She was kept NPO, started on IV hydration with PRN analgesics. She had an elevation of her bilirubin and therefore GI consult was obtained for possible ERCP or MRCP.?It was recommended to proceed with laparoscopic possible open cholecystectomy once her CBD was cleared. She was also incidentally found to have an UTI and started on IV rocephin. Her bilirubin normalized and LFTs downtrended. MRCP was negative for CBD obstruction. GI felt hyperbilirubinemia likely due to passed stone. She was therefore added onto the OR schedule for lap ccy. On 01/03/23, a laparoscopic cholecystectomy was performed by Dr. Pettit without complication. The patient tolerated the procedure well. The following day, she had incisional pain controlled by analgesics. She was advanced to a solid diet. She was ambulated. She was reassessed later in the day and felt ready for discharge to home. She was tolerating a solid diet with good pain control on PO analgesics. Her abd was benign with clean dressings. She was transitioned to Macrobid 100mg BID for 4 more days for treatment of her UTI. She is to follow up with Dr. Pettit in the office in 1 week. Status at Discharge Functional status at discharge: independent ambulation Time Spent with Patient Time attestation: Total time managing care of this patient today ____ minutes. Discharge coordination time: Less than 30 minutes Quality: Safe Use of Opioids Does Pt have an Active Cancer Diagnosis on the Problem List?: No Quality: Stroke Does the patient have a stroke diagnosis?: No Physical Exam Vital Signs: Vital Signs: Last Vital Signs Temp 96.9 F 01/04/23 14:28 Pulse 57 01/04/23 14:28 Resp 16 01/04/23 14:28 BP 132/60 01/04/23 14:28 Pulse Ox 99 01/04/23 14:28 O2 Del Method Room Air 01/04/23 14:28 O2 Flow Rate 2 01/03/23 19:00 BMI result Body Mass Index 36.6 Const: General: comfortable, no acute distress and alert Orientation/consciousness: patient oriented x3 Resp: Effort & Inspection: normal respiratory effort GI: Inspection: No distended and Yes incision (dressing c/d/i) Palpation (GI): Soft to palpation, Tenderness to palpation present (GI) (mild incisional), no guarding and not rigid Percussion: Yes normal to percussion Skin: General skin exam: no rashes or lesions noted Neuro: General: patient oriented x3 and moves all extremities DS: Data Data Completed and Pending Pending studies at discharge: Pending at discharge 01/03/23 14:23 Surgical [PTH] Routine Labs on day of discharge: Preliminary micro results at discharge 01/02/23 20:57 Blood Culture - Preliminary Blood - Venous No growth after 48 hours. 01/02/23 20:57 Blood Culture - Preliminary Blood - Venous No growth after 48 hours. Discharge Plan Discharge Anticipated Discharge Date/Time: 01/04/23 12:47 Patient Disposition: Home, Self-Care Discharge Diagnosis: acute cholecystitis, UTI Referrals: Eleno Pettit MD [Physician] - 1 Week Physician,Unknown J [Physician] - 1 Week Discharge Medications: New nitrofurantoin monohyd/m-cryst [Macrobid] 100 mg capsule 100 mg PO BID Qty: 8 0RF Rx Instructions: must administer with a meal/food phenazopyridine [Pyridium] 100 mg tablet 100 mg PO TID Qty: 6 0RF oxycodone 5 mg tablet 5 mg PO Q4H PRN (Reason: pain (scale score 7-10)) Qty: 20 0RF Rx Instructions: Partial Fill upon patient request. Continued cyclobenzaprine 10 mg tablet 10 mg PO TID PRN (Reason: muscle spasm) sumatriptan succinate 50 mg tablet 50 mg PO DAILY PRN (Reason: migraine) trazodone 100 mg tablet 100 mg PO BEDTIME PRN (Reason: Insomnia) pantoprazole 40 mg tablet,delayed release (DR/EC) 40 mg PO DAILY@0630 fluoxetine 10 mg capsule 10 mg PO DAILY Rx Instructions: TDD = 30 MG montelukast 10 mg tablet 10 mg PO BEDTIME gabapentin 100 mg capsule 100 mg PO TID albuterol sulfate [Proventil HFA] 90 mcg/actuation HFA aerosol inhaler 2 puff inhalation Q4H PRN (Reason: wheezing) fluticasone propionate 50 mcg/actuation spray,suspension 1 spray intranasal DAILY PRN (Reason: Allergy Symptoms) loratadine 10 mg tablet 10 mg PO DAILY PRN (Reason: allergies) calcipotriene 0.005 % ointment 1 appl topical BID Rx Instructions: apply to legs and arms in affected areas budesonide-formoterol [Symbicort] 160-4.5 mcg/actuation HFA aerosol inhaler 2 puff inhalation BID albuterol sulfate 2.5 mg /3 mL (0.083 %) solution for nebulization 2.5 mg inhalation Q6H PRN (Reason: wheezing) ibuprofen 800 mg tablet 800 mg PO TID PRN (Reason: pain) triamcinolone acetonide 0.025 % cream 1 appl topical BID hydrocortisone 2.5 % ointment 1 appl topical BID PRN (Reason: psoriasis) Rx Instructions: apply to affected area on skin folds fluocinonide 0.05 % cream 1 appl topical BID PRN (Reason: Rash) ondansetron 4 mg tablet,disintegrating 4 mg PO Q6-8H PRN (Reason: nausea/vomiting) clotrimazole 1 % cream 1 appl topical BID PRN (Reason: Rash) Rx Instructions: apply to affected area prazosin 2 mg capsule 2 mg PO BEDTIME fluoxetine 20 mg capsule 20 mg PO DAILY Rx Instructions: TDD = 30 MG Discharge Orders: Discharge Order (Routine); Ordered 01/04/23 Ordered By: Jenna Borges Diet: Low fat, low cholesterol Activity on Discharge: No heavy lifting Stand Alone Forms: Patient Portal Discharge page Activity Restrictions/Additional Instructions: Apply an ice pack for short intervals (20 minutes on, followed by at least 20 minutes off) for the first 2 days. Do not apply heat. Do not use creams, lotions, or topical antibiotics. These can cause infection or allergic reaction. Ok to shower 48 hours after your surgery. Remove dressings in 2 days and replace as needed. You have steri strips (small white cloth strips) covering your incision- these will fall off ~1 week. Follow up in office with Dr. Pettit in 1 week. ([phone]) No heavy lifting (>10lbs) or strenuous activity! Call Your Doctor If: -Your temperature exceeds 101.5? F -You experience excessive pain or swelling -You have an unexpected reaction to medication -You have excessive bleeding -You experience continued vomiting/nausea -Your incision begins to separate -Your incision shows signs of infection such as increased redness, swelling, excessive pain, drainage (light blood or clear fluid is normal) or heat Care Plan Goals: Return to baseline health and resume normal activities following recovery period. Health Concerns: acute cholecystitis, elevated LFTs UTI Plan of Treatment: s/p stephanie CCY F/u in office Oral abx for UTI Assessment: doing well post op Discharge Date/Time: 01/04/23 17:11
== END 2023-01-04 17:11 | disposition home or self-care (01) | DRG 263 ==
LOC: HO.ED 21:26 → HO.EDOVER 21:39 → HO.S3 23:48
PROVIDERS: Internal Medicine Gastroenterology; Physician Assistant; Admitting Provider Surgery; Emergency Provider Emergency Medicine; PCP Internal Medicine; Visit Provider Surgery
PROC: 0FT44ZZ Resection of Gallbladder, Percutaneous Endoscopic Approach (ICD-10-PCS; CPT 47562; principal; 2023-01-03 13:30)
DX: K80.00 Calculus of gallbladder with acute cholecystitis without obstruction (principal); J45.909 Unspecified asthma, uncomplicated; N39.0 Urinary tract infection, site not specified; K82.8 Other specified diseases of gallbladder; M79.7 Fibromyalgia; Z20.822 Contact with and (suspected) exposure to COVID-19; Z79.51 Long term (current) use of inhaled steroids; Z79.899 Other long term (current) drug therapy
CPT/HCPCS: 36415; 74176; 74181; 76705; 80048; 80053; 80076; 81001; 82607; 83605; 83690; 83735; 84702; 85025; 87040; 87086; 87635; 88304; 94640; 99285; J0131; J0696; J1100; J1170; J2250; J2270; J2405; J3010

== ENCOUNTER 2023-01-13 14:09 | Outpatient (REF) | payer MEDICAID, SELFPAY ==
[2023-01-13 16:34] LABS: Alanine Aminotransferase 115 U/L (0-31); Albumin Level 3.9 g/dL (3.5-5.0); Alkaline Phosphatase 204 U/L (39-117); Aspartate Amino Transferase 22 U/L (5-31); Bilirubin Direct 0.4 mg/dL (0.0-0.5); Bilirubin Total 0.7 mg/dL (0.0-1.0); Total Protein 6.7 g/dL (6.5-8.0)
== END 2023-01-13 14:10 | disposition home or self-care (01) ==
LOC: HO.LAB 14:09
PROVIDERS: PCP Internal Medicine; Visit Provider Surgery
DX: R17 Unspecified jaundice (principal)
CPT/HCPCS: 36415; 80076

== ENCOUNTER 2023-03-06 11:47 | Emergency (ER) | payer MEDICAID, SELFPAY ==
--- NOTE | ~2023-03-06 | XR_ITS ---
EXAMINATION: XR CHEST CLINICAL INFORMATION: Reason for Exam cough COMPARISON: None TECHNIQUE: One view of the chest FINDINGS: Lines and tubes: None. Clear lungs. No pleural effusion. No pneumothorax. Normal cardiomediastinal silhouette. XR/XR chest 1V IMPRESSION: * Clear lungs.
[2023-03-06 12:06] VITALS: BP 128/64; PULSE 72; RESP 19; TEMP 36.9; O2SAT 98; BMI 34.4
[2023-03-06 13:07] LABS: Influenza A PCR NEGATIVE (Negative); Influenza B PCR NEGATIVE (Negative); Resp Syncy Virus RNA Qual PCR NEGATIVE (Negative); SARS COV2 PCR INHOUSE NEGATIVE (Negative)
[2023-03-06] MEDS: Ketorolac Tromethamine 30 MG/ML VIAL IM (14:58)
--- NOTE | 2023-03-06 16:12 | ED_ITS ---
HPI - General Adult General Chief complaint: Upper Respiratory Symptoms Stated complaint: chest pressure spitting up black substance Time Seen by Provider: 03/06/23 13:52 Source: patient and RN notes reviewed Mode of arrival: ambulatory Limitations: no limitations History of Present Illness HPI narrative: This is a 37-year-old female, with a history of asthma and fibromyalgia, who presents emergency department for complaints of productive cough and back pain x 4 days. Patient reports the sputum she has black in color. Denies any bloody sputum Patient reports that she has a history of asthma and has been using her nebulizer treatment more often which has provided her with some relief. She reports that she used her nebulizer machine 10 times yesterday and noticed her heart was racing afterwards. She reports some shortness of breath and wheezing. Patient reports that she also has some upper back pain which worsens with movement and with palpation. She is a smoker. She denies any fevers, chills, c hest pain, palpitations, abdominal pain, nausea, vomiting, or diarrhea. No other complaints or concerns at this time. MD complaint: Cough Onset (ago): day(s) Relieving factors: none Exacerbating factors: none Associated symptoms: cough Treatments prior to arrival: none Related Data Home Medications Medication Instructions Recorded Confirmed albuterol sulfate 2.5 mg/3 mL 2.5 mg inhalation Q6H PRN wheezing 01/03/23 01/03/23 (0.083 %) solution for nebulization albuterol sulfate 90 mcg/actuation 2 puff inhalation Q4H PRN wheezing 01/03/23 01/03/23 aerosol inhaler (Proventil HFA) budesonide-formoterol HFA 160 2 puff inhalation BID 01/03/23 01/03/23 mcg-4.5 mcg/actuation aerosol inhaler (Symbicort) calcipotriene 0.005 % topical 1 appl topical BID 01/03/23 01/03/23 ointment clotrimazole 1 % topical cream 1 appl topical BID PRN Rash 01/03/23 01/03/23 cyclobenzaprine 10 mg tablet 10 mg PO TID PRN muscle spasm 01/03/23 01/03/23 fluocinonide 0.05 % topical cream 1 appl topical BID PRN Rash 01/03/23 01/03/23 fluoxetine 10 mg capsule 10 mg PO DAILY 01/03/23 01/03/23 fluoxetine 20 mg capsule 20 mg PO DAILY 01/03/23 01/03/23 fluticasone propionate 50 1 spray intranasal DAILY PRN 01/03/23 01/03/23 mcg/actuation nasal Allergy Symptoms spray,suspension gabapentin 100 mg capsule 100 mg PO TID 01/03/23 01/03/23 hydrocortisone 2.5 % topical 1 appl topical BID PRN psoriasis 01/03/23 01/03/23 ointment ibuprofen 800 mg tablet 800 mg PO TID PRN pain 01/03/23 01/03/23 loratadine 10 mg tablet 10 mg PO DAILY PRN allergies 01/03/23 01/03/23 montelukast 10 mg tablet 10 mg PO BEDTIME 01/03/23 01/03/23 ondansetron 4 mg disintegrating 4 mg PO Q6-8H PRN nausea/vomiting 01/03/23 01/03/23 tablet pantoprazole 40 mg tablet,delayed 40 mg PO DAILY@0630 01/03/23 01/03/23 release prazosin 2 mg capsule 2 mg PO BEDTIME 01/03/23 01/03/23 sumatriptan succinate 50 mg tablet 50 mg PO DAILY PRN migraine 01/03/23 01/03/23 trazodone 100 mg tablet 100 mg PO BEDTIME PRN Insomnia 01/03/23 01/03/23 triamcinolone acetonide 0.025 % 1 appl topical BID 01/03/23 01/03/23 topical cream Previous Rx's Medication Instructions Recorded nitrofurantoin 100 mg PO BID #8 caps 01/04/23 monohydrate/macrocrystals 100 mg capsule (Macrobid) oxycodone 5 mg tablet 5 mg PO Q4H PRN pain (scale score 01/04/23 7-10) #20 tabs phenazopyridine 100 mg tablet 100 mg PO TID #6 tabs 01/04/23 (Pyridium) benzonatate 100 mg capsule 100 mg PO BID PRN cough #20 caps 03/06/23 prednisone 20 mg tablet 40 mg PO DAILY 5 days #10 tabs 03/06/23 Allergies Allergy/AdvReac Type Severity Reaction Status Date / Time bee pollen Allergy Anaphylaxis Verified 01/13/23 14:16 mite-Dermatophagoides Allergy Nasal Verified 01/13/23 14:16 farinae, maya congestion [dust mite - [place]] onion Allergy Anaphylaxis Verified 01/13/23 14:16 pollen extracts Allergy Nasal Verified 01/13/23 14:16 congestion seafood Allergy Anaphylaxis Verified 01/13/23 14:16 berries Allergy Anaphylaxis Uncoded 01/13/23 14:16 Review of Systems Review of Systems: Constitutional: No Weight loss, No Fever, No Chills ENT/Mouth: No Ear Pain, No Nasal Congestion, No Sinus Pain, No Hoarseness, No sore throat, No Rhinorrhea, No Swallowing Difficulty Cardiovascular: No Chest Pain, No SOB Respiratory: + Cough, + Sputum, No Wheezing Gastrointestinal: No Nausea, No Vomiting, No Diarrhea, No Constipation, No Abdominal pain Genitourinary: No Dysuria, No Urinary Frequency, No Hematuria, No Urinary Incontinence/retention, No Urgency, No Flank Pain Musculoskeletal: +back pain, No joint pain, No Myalgias, No Joint Swelling Skin: No Skin Lesions, No rash Neuro: No Weakness, No Numbness, No Paresthesias [facility] Past Medical History Surgical History (Updated 01/13/23 @ 14:49 by Eleno Pettit MD) Hx laparoscopic cholecystectomy (01/03/23) Social History Social History Household Members: Significant Other and Family Housing: Apartment Alcohol intake: never Patient Tobacco Use Status: Current someday Tobacco user Substance Use Type: Marijuana Advance Directives: No Advance Directives Information Provided: No service: No Physical Exam ED Vital Signs: Vital Signs - 24 hr 03/06/23 12:06 Temperature 98.4 F Pulse Rate 72 Respiratory Rate 19 Blood Pressure 128/64 Pulse Oximetry 98 Oxygen Delivery Method Room Air BMI result Body Mass Index 34.4 General: Awake, alert, and oriented X3. No acute distress. HEENT: Normal inspection, oropharynx not erythematous, edematous, no tonsillar hypertrophy or exudates. Uvula is midline. TMs unremarkable. No cervical lymphadenopathy CVS: Normal heart rate and rhythm. Pulses normal. S1-S2 regular Respiratory: No respiratory distress, lungs clear to auscultation bilaterally, no wheezes, rales, or rhonchi. Skin: Warm, dry, no rashes noted to exposed skin. Normal skin color. Normal skin turgor. MSK: No midline spine tenderness, patient has tenderness to palpation over the left thoracic back with palpable spasm. Neuro: Oriented X 3. No motor deficit. No sensory deficit. Medications Administered Discontinued Medications Generic Name Dose Route Start Last Admin Trade Name Maxwell PRN Reason Stop Dose Admin Ketorolac Tromethamine 30 mg 03/06/23 14:52 03/06/23 14:58 Ketorolac Tromethamine 30 Mg/Ml Vial IM 03/06/23 14:53 30 mg ONCE ONE Administration Medical Decision Making Medical Decision Making [facility] Narrative: This is a 37-year-old female, with a past medical history of fibromyalgia and asthma, who presents emergency department today with complaints productive cough and back x4 days. Patient reports that she has been using a Jana she is at home which is provided without any relief. Upon examination, patient is nontoxic appearing vital signs stable, patient afebrile, not tachycardic or hypoxic. Chest x-ray obtained and was unremarkable, viral swabs obtained and were negative. Lung sounds clear to auscultation bilaterally without any wheezes, rales, or rhonchi noted. Patient also has tenderness to palpation over the thoracic paraspinous muscles, likely due to persistent cough. Will treat patient symptomatically with prednisone and Tessalon Perles to help with cough. Educated the importance of staying well hydrated and to stop smoking cigarettes as this is likely going to cause her cough to worsen. Advised follow-up with her PCP next week for improvement of her symptoms. Patient understands and agrees with plan. Patient stable for discharge Differential Diagnosis Differential Diagnoses: The differential diagnosis associated with the presentation includes Upper respiratory infection, pneumonia, asthma exacerbation, bronchitis Lab Data Labs: Lab Results 03/06/23 Range/Units 12:23 Influenza Type A (PCR) NEGATIVE (Negative) Influenza Type B (PCR) NEGATIVE (Negative) RSV RNA Qual (PCR) NEGATIVE (Negative) SARS-CoV-2 RNA (RT-PCR) NEGATIVE (Negative) Radiology Impression Discussion of test interpretation with radiology: I have reviewed the radiologist's reading. Radiologist Impression: EXAMINATION: XR CHEST CLINICAL INFORMATION: Reason for Exam cough COMPARISON: None TECHNIQUE: One view of the chest FINDINGS: Lines and tubes: None. Clear lungs. ? No pleural effusion. No pneumothorax. Normal cardiomediastinal silhouette. XR/XR chest 1V IMPRESSION: ? *? Clear lungs. Dictated By: Vaishali Baird MD Discharge Plan Discharge Clinical Impression: Cough Patient Disposition: Home, Self-Care Instructions: Acute Cough (ED) Additional Instructions: Please take prescribed prednisone as directed. Your x-ray today showed no pneumonia. Continue taking ibuprofen as directed for your symptoms. Please watch for any new or worsening symptoms including but not limited to worsening shortness of breath, fevers, chills, if any of these symptoms occur please return for re-evaluation. Follow-up with your primary care physician Prescriptions: New prednisone 20 mg tablet 40 mg PO DAILY 5 Days Qty: 10 0RF benzonatate 100 mg capsule 100 mg PO BID PRN (Reason: cough) Qty: 20 0RF No Action cyclobenzaprine 10 mg tablet 10 mg PO TID PRN (Reason: muscle spasm) sumatriptan succinate 50 mg tablet 50 mg PO DAILY PRN (Reason: migraine) trazodone 100 mg tablet 100 mg PO BEDTIME PRN (Reason: Insomnia) pantoprazole 40 mg tablet,delayed release (DR/EC) 40 mg PO DAILY@0630 fluoxetine 10 mg capsule 10 mg PO DAILY Rx Instructions: TDD = 30 MG montelukast 10 mg tablet 10 mg PO BEDTIME gabapentin 100 mg capsule 100 mg PO TID albuterol sulfate [Proventil HFA] 90 mcg/actuation HFA aerosol inhaler 2 puff inhalation Q4H PRN (Reason: wheezing) fluticasone propionate 50 mcg/actuation spray,suspension 1 spray intranasal DAILY PRN (Reason: Allergy Symptoms) loratadine 10 mg tablet 10 mg PO DAILY PRN (Reason: allergies) calcipotriene 0.005 % ointment 1 appl topical BID Rx Instructions: apply to legs and arms in affected areas budesonide-formoterol [Symbicort] 160-4.5 mcg/actuation HFA aerosol inhaler 2 puff inhalation BID albuterol sulfate 2.5 mg /3 mL (0.083 %) solution for nebulization 2.5 mg inhalation Q6H PRN (Reason: wheezing) ibuprofen 800 mg tablet 800 mg PO TID PRN (Reason: pain) triamcinolone acetonide 0.025 % cream 1 appl topical BID hydrocortisone 2.5 % ointment 1 appl topical BID PRN (Reason: psoriasis) Rx Instructions: apply to affected area on skin folds fluocinonide 0.05 % cream 1 appl topical BID PRN (Reason: Rash) ondansetron 4 mg tablet,disintegrating 4 mg PO Q6-8H PRN (Reason: nausea/vomiting) clotrimazole 1 % cream 1 appl topical BID PRN (Reason: Rash) Rx Instructions: apply to affected area prazosin 2 mg capsule 2 mg PO BEDTIME fluoxetine 20 mg capsule 20 mg PO DAILY Rx Instructions: TDD = 30 MG nitrofurantoin monohyd/m-cryst [Macrobid] 100 mg capsule 100 mg PO BID Qty: 8 0RF Rx Instructions: must administer with a meal/food phenazopyridine [Pyridium] 100 mg tablet 100 mg PO TID Qty: 6 0RF oxycodone 5 mg tablet 5 mg PO Q4H PRN (Reason: pain (scale score 7-10)) Qty: 20 0RF Rx Instructions: Partial Fill upon patient request. Interventions: ED Discharge Assessment Last Done: 03/06/23 15:32 Discharge Date/Time: 03/06/23 15:33
== END 2023-03-06 15:33 | disposition home or self-care (01) ==
PROVIDERS: Emergency Provider Internal Medicine; PCP Internal Medicine
DX: R05.9 Cough, unspecified (principal); Z20.822 Contact with and (suspected) exposure to COVID-19; Z20.828 Contact with and (suspected) exposure to other viral communicable diseases; F17.200 Nicotine dependence, unspecified, uncomplicated; F12.90 Cannabis use, unspecified, uncomplicated; Z79.899 Other long term (current) drug therapy
CPT/HCPCS: 0241U; 71045; 96372; 99283; 99284; J1885

== ENCOUNTER 2023-08-14 12:42 | Emergency (ER) | payer MEDICAID, SELFPAY ==
--- NOTE | ~2023-08-14 | XR_ITS ---
EXAMINATION: XR KNEE LEFT XR KNEE RIGHT CLINICAL INFORMATION: Bilateral knee pain COMPARISON: None TECHNIQUE: Right knee, 4 views Left knee, 4 views FINDINGS: Left knee: Bones, joints and soft tissues are normal. No evidence of knee joint effusion. No fracture or subluxation. Right knee: Bones, joints and soft tissues are normal. No evidence of knee joint effusion. No fracture or subluxation. XR/XR knee RT 4V IMPRESSION: Normal knees.
--- NOTE | ~2023-08-14 | XR_ITS ---
EXAMINATION: XR KNEE LEFT XR KNEE RIGHT CLINICAL INFORMATION: Bilateral knee pain COMPARISON: None TECHNIQUE: Right knee, 4 views Left knee, 4 views FINDINGS: Left knee: Bones, joints and soft tissues are normal. No evidence of knee joint effusion. No fracture or subluxation. Right knee: Bones, joints and soft tissues are normal. No evidence of knee joint effusion. No fracture or subluxation. XR/XR knee LT 4V IMPRESSION: Normal knees.
[2023-08-14 13:02] VITALS: BP 129/79; PULSE 89; RESP 18; TEMP 36.6; O2SAT 98; BMI 36.5
--- NOTE | 2023-08-14 13:05 | ED.GENADULT ---
HPI - General Adult General Chief complaint: Extremity Injury, Lower Stated complaint: pain in both knees Time Seen by Provider: 08/14/23 13:14 Source: patient Mode of arrival: ambulatory Limitations: no limitations History of Present Illness HPI narrative: 37 year old female with pmhx significant for fibromyalgia presents to the ED today complaining of atraumatic bilateral knee pain/swelling x1 week. Pain is confined to b/l knees. No radiation. States her knees are painful to the touch. No exacerbating or relieving factors. Able to ambulate without difficulty. No assistive devices. Denies injury, trauma or fall. Has been taking OTC pain medication without relief. Has also been icing and heating her knees without relief. Denies fever, chills, fatigue, rashes, MONTERO, neck or back pain, abd pain, N/V, numbness/weakness/tingling to bilateral LE. Denies recent tick bites. Denies recent illness. Denies concern for STDs. Related Data Home Medications Medication Instructions Recorded Confirmed albuterol sulfate 2.5 mg/3 mL 2.5 mg inhalation Q6H PRN wheezing 01/03/23 01/03/23 (0.083 %) solution for nebulization albuterol sulfate 90 mcg/actuation 2 puff inhalation Q4H PRN wheezing 01/03/23 01/03/23 aerosol inhaler (Proventil HFA) budesonide-formoterol HFA 160 2 puff inhalation BID 01/03/23 01/03/23 mcg-4.5 mcg/actuation aerosol inhaler (Symbicort) calcipotriene 0.005 % topical 1 appl topical BID 01/03/23 01/03/23 ointment clotrimazole 1 % topical cream 1 appl topical BID PRN Rash 01/03/23 01/03/23 cyclobenzaprine 10 mg tablet 10 mg PO TID PRN muscle spasm 01/03/23 01/03/23 fluocinonide 0.05 % topical cream 1 appl topical BID PRN Rash 01/03/23 01/03/23 fluoxetine 10 mg capsule 10 mg PO DAILY 01/03/23 01/03/23 fluoxetine 20 mg capsule 20 mg PO DAILY 01/03/23 01/03/23 fluticasone propionate 50 1 spray intranasal DAILY PRN 01/03/23 01/03/23 mcg/actuation nasal Allergy Symptoms spray,suspension gabapentin 100 mg capsule 100 mg PO TID 01/03/23 01/03/23 hydrocortisone 2.5 % topical 1 appl topical BID PRN psoriasis 01/03/23 01/03/23 ointment ibuprofen 800 mg tablet 800 mg PO TID PRN pain 01/03/23 01/03/23 loratadine 10 mg tablet 10 mg PO DAILY PRN allergies 01/03/23 01/03/23 montelukast 10 mg tablet 10 mg PO BEDTIME 01/03/23 01/03/23 ondansetron 4 mg disintegrating 4 mg PO Q6-8H PRN nausea/vomiting 01/03/23 01/03/23 tablet pantoprazole 40 mg tablet,delayed 40 mg PO DAILY@0630 01/03/23 01/03/23 release prazosin 2 mg capsule 2 mg PO BEDTIME 01/03/23 01/03/23 sumatriptan succinate 50 mg tablet 50 mg PO DAILY PRN migraine 01/03/23 01/03/23 trazodone 100 mg tablet 100 mg PO BEDTIME PRN Insomnia 01/03/23 01/03/23 triamcinolone acetonide 0.025 % 1 appl topical BID 01/03/23 01/03/23 topical cream Previous Rx's Medication Instructions Recorded nitrofurantoin 100 mg PO BID #8 caps 01/04/23 monohydrate/macrocrystals 100 mg capsule (Macrobid) oxycodone 5 mg tablet 5 mg PO Q4H PRN pain (scale score 01/04/23 7-10) #20 tabs phenazopyridine 100 mg tablet 100 mg PO TID #6 tabs 01/04/23 (Pyridium) benzonatate 100 mg capsule 100 mg PO BID PRN cough #20 caps 03/06/23 prednisone 20 mg tablet 40 mg (2 x 20 mg) PO DAILY 5 days 03/06/23 #10 tabs prednisone 50 mg tablet 50 mg PO DAILY 5 days #5 tabs 08/14/23 Allergies Allergy/AdvReac Type Severity Reaction Status Date / Time bee pollen Allergy Anaphylaxis Verified 08/14/23 13:02 mite-Dermatophagoides Allergy Nasal Unverified 08/14/23 13:02 farinae, maya congestion [dust mite - [place]] onion Allergy Anaphylaxis Verified 08/14/23 13:02 pollen extracts Allergy Nasal Verified 08/14/23 13:02 congestion seafood Allergy Anaphylaxis Verified 08/14/23 13:02 berries Allergy Anaphylaxis Uncoded 01/13/23 14:16 Review of Systems Review of Systems: Constitutional: No fever, chills, fatigue, night sweats, weight changes ENT/Mouth: No ear pain, hearing loss, nasal congestion, sinus pain, rhinorrhea, sore throat Eyes: No eye pain, swelling, redness, vision changes, discharge Cardio: No chest pain, palpitations, CLAYTON, orthopnea, peripheral edema Pulm: No SOB, cough, sputum, wheezing, dyspnea, hemoptysis GI: No nausea, vomiting, hematemesis, abdominal pain, diarrhea, constipation, hematochezia, melena : No irregular bleeding, dysuria, frequency, urgency, hesitancy, hematuria MSK: No back pain, neck pain, joint pain, myalgias, +knee pain Skin: No lesions, rashes Neuro: No weakness, numbness, paresthesias, LOC, dizziness, headache All other systems reviewed and are negative. [facility] Past Medical History Attestation statement: The following information was validated with the patient. Source: old records reviewed and nursing notes reviewed Surgical History Hx laparoscopic cholecystectomy (01/03/23) Social History Social History Household Members: Significant Other and Family Housing: Apartment Alcohol intake: never Patient Tobacco Use Status: Current someday Tobacco user Substance Use Type: Marijuana Advance Directives: No Advance Directives Information Provided: No service: No Physical Exam ED Vital Signs: Vital Signs - 24 hr 08/14/23 13:02 Temperature 97.9 F Pulse Rate 89 Respiratory Rate 18 Blood Pressure 129/79 Pulse Oximetry 98 BMI result Body Mass Index 36.5 vital signs stable Const General: cooperative, no acute distress, alert and awake Nutritional Appearance: obese Orientation/consciousness: patient oriented x3 Limitations: no limitations HENMT Head: Yes normal to inspection Ears: hearing grossly normal bilaterally General nose exam: Normal external nose present Eyes General: appearance normal, both eyes and all related structures Conjunctivae: conjunctivae normal Sclerae: sclerae normal Pupils: Equal, round and reactive pupils present EOM: EOMs intact bilaterally Resp Effort & Inspection: normal respiratory effort Auscultation: clear to auscultation bilaterally Cardio Rate: regular rate Rhythm: regular rhythm Peripheral pulses: radial pulses present, posterior tibial pulses present and dorsalis pedis present Back/Spine/Pelvis Other: No midline spinous tenderness. No paraspinal muscle tenderness. No step-off deformity. Skin General skin exam: no rashes or lesions noted Neuro Other: Strength 5/5 intact throughout.?Sensation intact to light touch.?NV intact distally.? General: patient oriented x3, gait normal and moves all extremities Cranial nerves: Yes CN's II-XII intact bilaterally and Yes Equal, round and reactive pupils present Extrem Other: + Bilateral knees without edema or overlying erythema. Exquisitely tender to palpation b/l. No palpable fluctuance, deformity or mass. Full ROM intact. 2+ popliteal, DP, and PT pulses b/l. General: Yes normal to inspection and Yes full ROM Course Course Course Narrative: Patient complains of bilateral knee pain symmetric which started about a week ago, denies any injury denies any fever Bilateral knee x-ray ordered This rapid medical exam and triage pending full evaluation by ER provider for full history and physical, evaluation of results and disposition Reevaluation(s) Reevaluation #1: 1420-- XR bilateral knees without acute fracture or subluxation. Patient is likely suffering from inflammatory arthritis along with her chronic fibromyalgia, which she manages with gabapentin TID. Patient informed of xray results. Will send 5 day course of prednisone to her pharmacy. Advised her to follow-up with her primary care physician if symptoms persist. I will also provide her with a referral to an orthopedist to see as needed. Explained imaging results and disposition patient. Patient expresses understanding and is in a in agreement with this disposition. Discussed return precautions. All questions answered at this time. Patient is stable for discharge. Medical Decision Making Medical Decision Making [facility] Narrative: 37 year old female with pmhx significant for fibromyalgia presents to the ED today complaining of atraumatic bilateral knee pain/swelling x1 week. Nontoxic appearing and in NAD. Skin without rashes. Bilateral knees without edema or overlying erythema. Exquisitely tender to palpation b/l. No palpable fluctuance, deformity or mass. Full ROM intact. 2+ popliteal, DP, and PT pulses b/l. NV intact distally. Clinical concern for osteoarthritis, acute on chronic fibromyalgia, fracture, dislocation, MSK sprain/ strain. Lower suspicion for septic arthritis, reactive arthritis, Lyme arthritis, Campbell cyst, DVT, threat to limb. XR b/l knees ordered in triage. Plan to review results and re-evaluate patient. Differential Diagnosis Differential Diagnoses: The differential diagnosis associated with the presentation includes As above. Admission/Observation Not indicated. Independent Interpretation I performed an independent interpretation of an: Plain X-Ray Interpretation: x-ray bilateral knees without acute fracture or subluxation, no effusion, agree with radiologist's interpretation. Radiology Impression Discussion of test interpretation with radiology: I have reviewed the radiologist's reading. Radiologist Impression: XR knee RT 4V IMPRESSION: Normal knees. External Record Review External record reviewed: Inpatient record Prescription Management I considered prescription management with: Other (steroid) Chronic Conditions Patient?s care impacted by: Other (fibromyalgia) Critical Care Time Critical Care Time Critical Care Time: No Discharge Plan Discharge Clinical Impression: Knee pain, bilateral Patient Disposition: Home, Self-Care Instructions: Knee Pain (ED), Arthralgia (ED) Additional Instructions: XR of your knees do not show acute fracture or dislocation. You likely have an inflammatory arthritis. Prednisone is being sent to your pharmacy. Take this for the next 5 days to help with inflammation. You need to follow-up with your primary care provider. You have also been provided a referral to an orthopedic doctor. You may call them to make an appointment. They will not call you. Return to the emergency department if your symptoms persist or worsen. In the case of an emergency, call 911. Prescriptions: New prednisone 50 mg tablet 50 mg PO DAILY 5 Days Qty: 5 0RF No Action cyclobenzaprine 10 mg tablet 10 mg PO TID PRN (Reason: muscle spasm) sumatriptan succinate 50 mg tablet 50 mg PO DAILY PRN (Reason: migraine) trazodone 100 mg tablet 100 mg PO BEDTIME PRN (Reason: Insomnia) pantoprazole 40 mg tablet,delayed release (DR/EC) 40 mg PO DAILY@0630 fluoxetine 10 mg capsule 10 mg PO DAILY Rx Instructions: TDD = 30 MG montelukast 10 mg tablet 10 mg PO BEDTIME gabapentin 100 mg capsule 100 mg PO TID albuterol sulfate [Proventil HFA] 90 mcg/actuation HFA aerosol inhaler 2 puff inhalation Q4H PRN (Reason: wheezing) fluticasone propionate 50 mcg/actuation spray,suspension 1 spray intranasal DAILY PRN (Reason: Allergy Symptoms) loratadine 10 mg tablet 10 mg PO DAILY PRN (Reason: allergies) calcipotriene 0.005 % ointment 1 appl topical BID Rx Instructions: apply to legs and arms in affected areas budesonide-formoterol [Symbicort] 160-4.5 mcg/actuation HFA aerosol inhaler 2 puff inhalation BID albuterol sulfate 2.5 mg /3 mL (0.083 %) solution for nebulization 2.5 mg inhalation Q6H PRN (Reason: wheezing) ibuprofen 800 mg tablet 800 mg PO TID PRN (Reason: pain) triamcinolone acetonide 0.025 % cream 1 appl topical BID hydrocortisone 2.5 % ointment 1 appl topical BID PRN (Reason: psoriasis) Rx Instructions: apply to affected area on skin folds fluocinonide 0.05 % cream 1 appl topical BID PRN (Reason: Rash) ondansetron 4 mg tablet,disintegrating 4 mg PO Q6-8H PRN (Reason: nausea/vomiting) clotrimazole 1 % cream 1 appl topical BID PRN (Reason: Rash) Rx Instructions: apply to affected area prazosin 2 mg capsule 2 mg PO BEDTIME fluoxetine 20 mg capsule 20 mg PO DAILY Rx Instructions: TDD = 30 MG nitrofurantoin monohyd/m-cryst [Macrobid] 100 mg capsule 100 mg PO BID Qty: 8 0RF Rx Instructions: must administer with a meal/food phenazopyridine [Pyridium] 100 mg tablet 100 mg PO TID Qty: 6 0RF oxycodone 5 mg tablet 5 mg PO Q4H PRN (Reason: pain (scale score 7-10)) Qty: 20 0RF Rx Instructions: Partial Fill upon patient request. prednisone 20 mg tablet 40 mg PO DAILY 5 Days Qty: 10 0RF benzonatate 100 mg capsule 100 mg PO BID PRN (Reason: cough) Qty: 20 0RF Referrals: [facility] [Provider Group] Paolo Larkin MD [Primary Care Provider] - Interventions: ED Discharge Assessment Last Done: 08/14/23 14:24 Discharge Date/Time: 08/14/23 14:25
== END 2023-08-14 14:25 | disposition home or self-care (01) ==
PROVIDERS: Emergency Provider Emergency Medicine; PCP Internal Medicine
DX: M25.562 Pain in left knee (principal); M25.561 Pain in right knee; M79.7 Fibromyalgia; F17.200 Nicotine dependence, unspecified, uncomplicated; F12.90 Cannabis use, unspecified, uncomplicated; Z90.49 Acquired absence of other specified parts of digestive tract; Z79.899 Other long term (current) drug therapy
CPT/HCPCS: 73564; 99282; 99283

== ENCOUNTER 2023-08-26 12:23 | Outpatient (AMB) | payer MEDICAID, SELFPAY ==
--- NOTE | 2023-08-26 12:27 | A.OFFVIS_ITS ---
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 The patient states that her right knee pain has gotten worse over the last year in spite of continued non operative treatments. She did twist her knee approximately 1 year ago and had acute onset of pain along the medial aspect of her knee. She has done physical therapy for 12 weeks over the last 6 months which aggravated her pain. She has also had injections in the past which gave her minimal relief. Patient states that her bilateral knee pains keep her awake at night. The patient states that ?arthritis? does run in her family. She states that her right knee will give out several times per day. Allergies bee pollen Allergy (Verified 08/26/23 12:33) Anaphylaxis mite-Dermatophagoides farinae, maya [dust mite - [place]] Allergy (Unverified 08/26/23 12:33) Nasal congestion onion Allergy (Verified 08/26/23 12:33) Anaphylaxis pollen extracts Allergy (Verified 08/26/23 12:33) Nasal congestion seafood Allergy (Verified 08/26/23 12:33) Anaphylaxis berries Allergy (Uncoded 08/26/23 12:33) Anaphylaxis Medication List - Last Reconciled 08/26/23 by Elie Jim MD albuterol sulfate 90 mcg/actuation (Proventil HFA) 2 puffs inhalation Q4H PRN albuterol sulfate 2.5 mg inhalation Q6H PRN benzonatate 100 mg PO BID PRN budesonide-formoterol 160-4.5 mcg/actuation (Symbicort) 2 puffs inhalation BID calcipotriene 0.005% 1 appl topical BID clotrimazole 1% 1 appl topical BID PRN cyclobenzaprine 10 mg PO TID PRN fluocinonide 0.05% 1 appl topical BID PRN fluoxetine 20 mg PO DAILY fluoxetine 10 mg PO DAILY fluticasone propionate 50 mcg/actuation 1 spray intranasal DAILY PRN gabapentin 100 mg PO TID hydrocortisone 2.5% 1 appl topical BID PRN ibuprofen 800 mg PO TID PRN loratadine 10 mg PO DAILY PRN montelukast 10 mg PO BEDTIME nitrofurantoin monohyd/m-cryst 100 mg (Macrobid) 100 mg PO BID ondansetron 4 mg PO Q6-8H PRN oxycodone 5 mg PO Q4H PRN pantoprazole 40 mg PO DAILY@0630 phenazopyridine (Pyridium) 100 mg PO TID prazosin 2 mg PO BEDTIME prednisone 50 mg PO DAILY 5 days prednisone 40 mg (2 x 20 mg) PO DAILY 5 days sumatriptan succinate 50 mg PO DAILY PRN trazodone 100 mg PO BEDTIME PRN triamcinolone acetonide 0.025% 1 appl topical BID PFSH Surgical History Hx laparoscopic cholecystectomy (01/03/23) Social History Household Members: Significant Other and Family Housing: Apartment Alcohol intake: never Patient Tobacco Use Status: Current someday Tobacco user Substance Use Type: Marijuana service: No Physical Exam Vital Signs: BMI result Body Mass Index 36.4 Const Other: Well-nourished well-developed very friendly female awake alert and oriented x3 in no acute distress Extrem Other: Bilateral lower extremity examination shows good capillary refill, no skin lesions noted, normal sensation light touch Right knee examination shows a minimal effusion, minimal crepitus with range of motion, tenderness along her medial joint line, positive Junie's test, no instability Results Reviewed Results Reviewed: X-rays of the patient's bilateral knee show mild joint space narrowing, no acute bony abnormalities Assessment & Plan Assessment & Plan (1) Joint pain: Code(s): M25.50 - Pain in unspecified joint (2) Right knee pain: Code(s): M25.561 - Pain in right knee Plan: Ms. Ash Luque presents with diffuse joint pains as well as right knee pain and mechanical symptoms of unclear etiology. I will send her for an MRI of her right knee to further evaluate the status of her medial meniscus. I will also send her for blood work to rule out a rheumatologic disorder. I will see the patient back after the MRI to discuss the findings and treatment options. Feel free to call me at any time should questions regarding her orthopedic management arise. Thank you very much for asking me to see this very friendly patient. I spent 22 minutes in reviewing the patient's records and imaging studies, seeing the patient and documenting in the medical record. Orders: Orders MR knee RT wo con Today M25.561 - Pain in right knee Erythrocyte Sedimentation Rate Today M25.50 - Pain in unspecified joint C Reactive Protein Today M25.50 - Pain in unspecified joint Uric Acid Today M25.50 - Pain in unspecified joint Rheumatoid Factor Today M25.50 - Pain in unspecified joint Coding Level of Care Code New Pt Level 2 (12250) Diagnoses Joint pain M25.50 Right knee pain M25.561
[2023-08-26 12:33] VITALS: BMI 36.4
== END 2023-08-26 12:49 | disposition home or self-care (01) ==
PROVIDERS: PCP Internal Medicine; Visit Provider Orthopaedic Surgery
DX: M25.50 Pain in unspecified joint (principal); M25.561 Pain in right knee
CPT/HCPCS: 99202

== ENCOUNTER 2023-08-26 12:23 | Outpatient (REF) | payer MEDICAID, SELFPAY ==
[2023-08-26 14:07] LABS: C Reactive Protein 0.83 mg/dL (< or = 0.50); Uric Acid 4.4 mg/dL (2.4-5.7)
[2023-08-26 14:25] LABS: Rheumatoid Factor < 13.0 IU/mL (<15.0)
[2023-08-26 15:12] LABS: Erythrocyte Sedimentation Rate 12 MM/HR (0-20)
== END 2023-08-26 12:24 | disposition home or self-care (01) ==
LOC: HO.LAB 12:23
PROVIDERS: PCP Internal Medicine; Visit Provider Orthopaedic Surgery
DX: M25.50 Pain in unspecified joint (principal); M25.561 Pain in right knee
CPT/HCPCS: 36415; 84550; 85652; 86140; 86431; 99202